=== PATIENT | male | born 1960 | race Caucasian/White ===

== ENCOUNTER 2018-10-27 00:14 | Outpatient (CLI) | payer OTHER, SELFPAY ==
[2018-10-27 13:01] LABS: #Basophils 0.1 thou/uL (0.0-0.2); #Eosinphils 0.5 thou/uL (0.0-0.7); #Lymphocytes 2.3 thou/uL (1.20-3.40); #Monocytes 0.7 thou/uL (0.11-0.59); #Neutrophils 4.3 thou/uL (1.40-6.50); %Basophils 0.7 % (0.0-1.0); %Eosinophils 6.6 % (0.0-10.0); %Lymphocytes 29.4 % (21.0-51.0); %Monocytes 8.8 % (0.0-10.0); %Neutrophils 54.5 % (42.0-75.0); Hemoglobin 15.4 g/dL (14.0-18.0); Mean Corpuscular HGB CONC 33.2 g/dL (32.0-36.0); Mean Corpuscular Hemoglobin 29.9 pg (27.0-31.0); Mean Corpuscular Volume 90.3 fL (78.0-98.0); Mean Platelet Volume 6.4 fL (7.4-10.4); Platelet Count 276 thou/uL (130-400); RBC Distribution Width 11.7 % (11.5-14.5); Red Blood Cell (RBC) Count 5.13 mill/uL (4.70-6.10); White Blood Cell (WBC) Count 7.8 thou/uL (4.8-10.8)
[2018-10-27 13:20] LABS: ALT (SGPT) 46 U/L (8-55); AST (SGOT) 28 U/L (5-34); Alkaline Phosphatase 101 U/L (40-150); Anion Gap 12 mmol/L (10-20); BUN (Urea Nitrogen) 18 mg/dL (8.4-25.7); Bilirubin, Total 0.3 mg/dL (0.2-1.2); Calc. Creatinine Clearance 0 mL/min (70-130); Calcium 9.2 mg/dL (7.8-10.44); Carbon Dioxide 29 mmol/L (22-29); Chloride 103 mmol/L (98-107); Estimated GFR-MDRD 64; Globulin 2.7 g/dL (2.4-3.5); Glucose 99 mg/dL (70-105); Potassium 4.3 mmol/L (3.5-5.1); Protein, Total 6.7 g/dL (6.0-8.3); Sodium 140 mmol/L (136-145)
--- NOTE | 2018-10-28 07:24 | EKG ---
Test Reason : Blood Pressure : / mmHG Vent. Rate : 064 BPM Atrial Rate : 064 BPM P-R Int : 154 ms QRS Dur : 090 ms QT Int : 406 ms P-R-T Axes : 066 062 070 degrees QTc Int : 418 ms Normal sinus rhythm Normal ECG No previous ECGs available Confirmed by RASHAAD MUSE ([id number]) on 10/28/2018 7:24:37 AM Referred By: SALLY Confirmed By:RASHAAD MUSE
== END 2018-10-27 00:15 | disposition home or self-care (01) ==
LOC: LABBT 00:14
PROVIDERS: ATTEND Surgery
DX: Z01.818 Encounter for other preprocedural examination (principal); K40.20 Bilateral inguinal hernia, without obstruction or gangrene, not specified as recurrent
CPT/HCPCS: 80053; 85025; 93005; 93010

== ENCOUNTER 2018-10-31 06:50 | Inpatient (IN) | payer OTHER, SELFPAY ==
[2018-10-27 12:23] VITALS: BMI 24.3
[2018-10-31] MEDS ORDERED: Fentanyl 100 MCG/2 ML VIAL ONE ×7 (08:01→20:21)
[2018-10-31] MEDS ORDERED: Bupivacaine/Epinephrine 0.25% 30 ML VIAL ONE ×2 (09:23→09:39)
[2018-10-31] MEDS ORDERED: Midazolam HCl 2 mg/2 ml Vial ONE (09:44)
[2018-10-31] MEDS ORDERED: ISOVUE-370 76%-LOCM 1 ML ONE (13:44)
[2018-10-31] MEDS ORDERED: ePHEDrine/0.9% NaCl/PF SYRINGE 50 mg/10 ml ONE (13:45)
[2018-10-31 15:36] LABS: Hemoglobin 14.3 g/dL (14.0-18.0)
[2018-10-31] MEDS ORDERED: PROPOFOL 200 MG/20 ML VIAL ONE ×2 (16:34→16:35)
[2018-10-31] MEDS ORDERED: Dexamethasone 20 MG/5 ML VIAL ONE ×2 (16:34→16:35)
[2018-10-31] MEDS ORDERED: Rocuronium Bromide 10 MG/ML (10ML VIAL) ONE ×2 (16:34→16:35)
[2018-10-31] MEDS ORDERED: Glycopyrrolate 0.2 MG/ML 5 ML SYRINGE ONE ×2 (16:34→16:35)
[2018-10-31] MEDS ORDERED: Ketorolac Tromethamine 30 MG/ML VIAL ONE (16:34)
[2018-10-31] MEDS ORDERED: Ondansetron PF 4 MG/2 ML Vial ONE ×2 (16:34→16:35)
[2018-10-31] MEDS ORDERED: Succinylcholine Chloride 20 MG/ML 10 ml SYRINGE FS ONE (16:35)
[2018-10-31] MEDS ORDERED: PHENYLEPHRINE-NS 100 MCG/ML 10 ML SYRINGE ONE (16:35)
[2018-10-31] MEDS ORDERED: Lidocaine 2% PF 5 ML VIAL ONE (16:35)
--- NOTE | 2018-10-31 16:36 | CT ---
CT Abdomen Pelvis W Con History: [Postoperative abdominal pain] Comparison: CT 10/18/2014 Findings: Lung bases have mild atelectatic changes. No pericardial effusion. There is a large hematoma which is retroperitoneal along the right pelvis without contrast extravasat ion from the right external iliac artery. There is also some low-grade fluid along the proximal small bowel mesentery and along the right subphrenic space. No hydronephrosis. There is L1 compression fracture with some peripheral sclerosis healed from 2015. There is gas along both inguinal canals with hemorrhage extending into the right scrotum. Overall the hematoma measures 13.5 x 9 x 18 cm (transverse by AP by craniocaudal). No dilated loops of large or small bowel. Pancreas unremarkable as well as the spleen and liver. Gall bladder is unremarkable. Impression: 1. Active contrast extravasation likely from the right external iliac artery with hematoma as describ ed. Endovascular consultation advised. 2. Small volume right subphrenic fluid which does not measured blood attenuation. 3. Extension of hemorrhage into the right hemiscrotum. Code CR
[2018-10-31] MEDS ORDERED: Protamine Sulfate 50 MG/5 ML VIAL ONE (16:46)
[2018-10-31] MEDS ORDERED: Heparin 5,000 UNITS/ML VIAL ONE (16:46)
[2018-10-31] MEDS ORDERED: Bupivacaine HCl 0.5%/Epinephrine 1:200,000/PF 30 ml Vial ONE (16:46)
[2018-10-31] MEDS ORDERED: Fentanyl 250 MCG/5 ML VIAL ONE (16:47)
[2018-10-31] MEDS ORDERED: Midazolam HCl 5 mg/5 ml Vial ONE (16:47)
[2018-10-31] MEDS ORDERED: Heparin 10,000 UNITS/1 ML VIAL ONE (16:52)
[2018-10-31] MEDS ORDERED: Ketamine 50 MG/ML (10ML VIAL) ONE (17:02)
[2018-10-31] MEDS ORDERED: Norepinephrine 8 MG/0.9% NS 250 ML ONE (17:02)
[2018-10-31] MEDS ORDERED: Albumin 5% 500 ML ONE (17:38)
--- NOTE | 2018-10-31 18:07 | PRG ---
DATE OF SERVICE: 10/31/2018 The patient returned from CT scan. CAT scan shows an active extravasation from the right external iliac artery with a fairly large retroperitoneal bleed. He is still hurting some. He is still awake. His blood pressure is 89/70. His heart rates in the 70s. He is mentating. We planned to take him back. I have been contacted Dr. Guerra, Cardiovascular Surgery, who will actually do the procedure and I will assist him. We are going to go ahead and once he is asleep put some lines and attempt repair. Job ID: [id number]
[2018-10-31] MEDS ORDERED: Ondansetron PF 4 MG/2 ML Vial IVP PRN (19:49)
[2018-10-31] MEDS ORDERED: Dextrose 50% Abboject 50 ML SYRINGE SLOW IVP PRN (19:49)
[2018-10-31] MEDS ORDERED: Dextrose 5% in Water 1,000 ML IV PRN (19:49)
[2018-10-31] MEDS ORDERED: hydrALAZINE 20 MG/ML VIAL SLOW IVP PRN (19:49)
[2018-10-31] MEDS ORDERED: Promethazine HCl 25 MG/ML VIAL IM PRN (19:49)
[2018-10-31] MEDS ORDERED: Morphine 4 MG/ML VIAL SLOW IVP PRN (19:49)
--- NOTE | 2018-10-31 20:18 | RAD ---
Radiograph chest one view: 10/31/2018 at 8:00 PM HISTORY: 58-year-old male status post central line placement COMPARISON: 07/17/2008 FINDINGS: There is a new right subclavian central vascular catheter which crosses the midline of the mediastinu m, with distal tip overlying the medial aspect of the contralateral left clavicle. No pneumothorax is visualized. No pulmonary edema or cardiomegaly. The medial base of the left lower lobe has a small region of increased attenuation which could be atelectasis although it would be difficult to rule out early pneumonia in this location. This was not present on the prior study. IMPRESSION: 1. Right subclavian central vascular catheter placement with distal tip that crosses the midline of t he mediastinum, overlying the expected location of the contralateral left subclavian vein. 2. No pneumothorax. 3. Nonspecific small focal region of increased density at the medial base of the left lower lobe.
[2018-10-31] MEDS ORDERED: Ondansetron HCl/PF 4 MG/2 ML Vial IVP PRN (20:40)
[2018-10-31] MEDS ORDERED: Promethazine HCl 25 MG/ML VIAL IM/IV PRN (20:40)
[2018-10-31] MEDS: Famotidine 20 MG TAB PO SCH (21:57)
[2018-10-31] MEDS: Piperacillin/Tazobactam 3.375 GM in Sodium Chloride 0.9% 100 ML IVPB SCH (22:04)
[2018-10-31] MEDS: D5 1/2 NS w/20 mEq KCL 1,000 ML IV SCH (22:05)
[2018-10-31] MEDS: Famotidine/PF 20 mg/2ml Vial SLOW IVP SCH (22:05)
--- NOTE | 2018-10-31 22:06 | HP ---
CHIEF COMPLAINT: Abdominal distention and pain. HISTORY OF PRESENT ILLNESS: The patient is a 58-year-old male, who had massive bilateral inguinal hernias repaired this morning in the recovery room and [facility] was noted to have increased abdominal pain, abdominal distention, and hypotension. We decided to admit him for further evaluation and treatment. On examination, his heart rates in the 70s, but his blood pressure is 97/60, looks pale. His abdomen is distended. The surgical incision sites are dry. There was no bleeding. ASSESSMENT: Abdominal distention and pain after repair of very large inguinal hernias. PLAN: CT scan of abdomen and pelvis, IV fluids, pain medicine. Job ID: [id number]
[2018-10-31] MEDS: HYDROcodone/Acetaminophen 10/325 mg Tablet PO PRN (22:12)
--- NOTE | 2018-11-01 01:44 | OP ---
DATE OF PROCEDURE: 10/31/2018 PREOPERATIVE DIAGNOSIS: Possible iliac artery injury with poor IV access. PROCEDURE PERFORMED: Right subclavian central line placement. INDICATIONS: The patient is a 58-year-old male with possible arterial injury and needs IV access. FINDINGS: Good backflow of venous blood, J-wire threaded easily. DESCRIPTION OF PROCEDURE: After informed consent was obtained, the patient already was in Trendelenburg position. His chest was prepped and draped in the usual fashion. An introducer needle was inserted, right subclavian good backflow of venous blood. J-wire threaded easily. The pre-flushed triple-lumen catheter inserted over the wire. The wire was removed. Each of the ports flushed, good backflow of venous blood, flushed with saline. The catheter was sutured in place with interrupted 3-0 silk suture. Sterile bandage applied. The patient tolerated the procedure well and the main procedure commenced. Chest x-ray obtained in recovery. Job ID: [id number]
--- NOTE | 2018-11-01 01:54 | OP ---
DATE OF PROCEDURE: 10/31/2018 PREOPERATIVE DIAGNOSIS: Possible external iliac artery injury with active extravasation. BALLOON MAKER SURGEON: Geoffrey Michele MD PROCEDURE PERFORMED: Groin exploration, ligation of right inferior epigastric artery and recurrent right inguinal hernia repair with mesh. INDICATIONS: The patient is a 58-year-old male, who had bilateral gigantic scrotal hernias repaired this morning. Later in recovery, he was found to be complaining of increasing abdominal pain, abdominal distention, and hypotension. We sent him for a CT scan with IV contrast showing a retroperitoneal hematoma with active extravasation that the radiologist read out as coming from the external iliac artery. Unfortunately, both of the vascular surgeons were in an emergency surgery [facility]. The third was on vacation, but we were able to get hold to Dr. Michele and he was able to come in, even though he was on vacation, but it took an extra hour and a half. The patient was stable while we wanted to put an arterial line and central line. Awaiting the cardiac surgeon from coming in, I wanted calling the radiologist on-call. He had a relook at the scan, I said is it possible that this could be just an inferior epigastric artery bleed and he said yes it could be. We elected because he was stable to not create a new incision, but go through the old incision. We prepared for the worst. DESCRIPTION OF PROCEDURE: His entire abdomen and leg were prepped and draped in the usual fashion. The fresh incision was opened. The sutures were removed. The mesh was removed. There was quite a bit of old hematoma, but no active bleeding seen. We inserted retractors and evacuated clot. We were prepared with the Cell Saver. After we evacuated all of the clot, we started seeing a little bit of fresh bright red blood coming from the inferior surface of the rectus and we ligated it now with a 2-0 Vicryl [id number]. We irrigated the old hematoma out and also we did inspect into the scrotum and washed it out. Hemostasis assured. A new piece of mesh was placed in the preperitoneal space. It was sutured to the pubic tubercle medially with a 2-0 Prolene suture, tucked under the external oblique fascia laterally. A notch was cut out for the spermatic cord. Then, the external oblique fascia was closed over the cord with a running 3-0 Vicryl. Андрей was closed with interrupted 3-0 Vicryl and skin closed with skin robert. A new bandage was placed on the left as well. The patient tolerated the procedure well, transferred to Recovery in fair condition. Job ID: [id number]
[2018-11-01] MEDS: HYDROcodone/Acetaminophen 10/325 mg Tablet PO PRN ×4 (02:57→22:51)
[2018-11-01] MEDS: Piperacillin/Tazobactam 3.375 GM in Sodium Chloride 0.9% 100 ML IVPB SCH ×4 (02:58→20:27)
[2018-11-01] MEDS: Morphine 2 MG/ML SYRINGE SLOW IVP PRN (04:27)
[2018-11-01 05:00] LABS: Anion Gap 11 mmol/L (10-20); BUN (Urea Nitrogen) 20 mg/dL (8.4-25.7); Calc. Creatinine Clearance 67 mL/min (70-130); Calcium 7.4 mg/dL (7.8-10.44); Carbon Dioxide 20 mmol/L (22-29); Chloride 108 mmol/L (98-107); Estimated GFR-MDRD 58; Glucose 166 mg/dL (70-105); Potassium 4.2 mmol/L (3.5-5.1); Sodium 135 mmol/L (136-145)
[2018-11-01 05:22] LABS: #Lymphocytes 1.2 thou/uL (1.20-3.40); #Monocytes 1.2 thou/uL (0.11-0.59); %Basophils 0.1 % (0.0-1.0); %Eosinophils 0.1 % (0.0-10.0); %Lymphocytes 7.8 % (21.0-51.0); %Monocytes 7.8 % (0.0-10.0); %Neutrophils 84.2 % (42.0-75.0); Hemoglobin 8.2 g/dL (14.0-18.0); Mean Corpuscular HGB CONC 32.5 g/dL (32.0-36.0); Mean Corpuscular Hemoglobin 29.7 pg (27.0-31.0); Mean Corpuscular Volume 91.3 fL (78.0-98.0); Mean Platelet Volume 6.7 fL (7.4-10.4); Platelet Count 220 thou/uL (130-400); RBC Distribution Width 11.5 % (11.5-14.5); Red Blood Cell (RBC) Count 2.77 mill/uL (4.70-6.10); White Blood Cell (WBC) Count 15.4 thou/uL (4.8-10.8)
[2018-11-01] MEDS: D5 1/2 NS w/20 mEq KCL 1,000 ML IV SCH ×2 (07:30→16:39)
--- NOTE | 2018-11-01 08:48 | OP ---
DATE OF PROCEDURE: 10/31/2018 PREOPERATIVE DIAGNOSES: Bilateral scrotal inguinal hernia. PROCEDURES PERFORMED: Bilateral open inguinal hernia repair with mesh. INDICATIONS: A 58-year-old male with very large bilateral scrotal inguinal hernias. They appeared to be somewhat reducible, but in preop, I could not completely reduce them, so for that reason, I did not do this laparoscopically. DESCRIPTION OF PROCEDURE: The patient was taken to the operating room and given general endotracheal anesthesia, placed in supine position. Abdomen and scrotum were prepped and draped in usual fashion. Local anesthesia was infiltrated subcutaneously and deep, started on the right side. A transverse right inguinal incision was performed. Subcu divided sharply. The fascia external oblique was incised in direction of its fibers through the external ring. The spermatic cord was massive and finally, I was able to get all the way around it and in so doing, was able to reduce this hernia. The hernia sac was extremely thick. This was dissected from surrounding cord structures down to the internal ring. It was very large hernia sac. The hernia sac was opened and inspected. There was no bowel within it. It was closed with a pursestring of 2-0 silk suture. Redundant sac excised. The proximal sac was reduced. Reduction maintained utilizing a PHS hernia system. Posterior layer placed in the preperitoneal space, anterior laid out, sutured the pubic tubercle with a 2-0 Prolene suture. Then, tucked under the external oblique fascia laterally. The external oblique fascia then closed over the cord with a running 3-0 Vicryl. Hemostasis assured. Андрей's closed with interrupted 3-0 Vicryl and the skin closed with a running subcuticular 4-0 Rapide. Then, moved to the left side. Again, local anesthesia infiltrated subcutaneously and deep. Transverse inguinal incision was performed. Subcu divided sharply. The fascia external oblique was incised in direction of its fibers through the external ring. Spermatic cord isolated, but it was very large. It was able to be isolated. It was , redundant sac excised. Proximal sac was reduced. Reduction maintained with a PHS hernia system. Posterior layer placed in the preperitoneal space, sutured to the pubic tubercle medially, tucked under the external oblique fascia laterally. The external oblique fascia closed with a running 3-0 Vicryl over the cord after hemostasis assured. Subcu reapproximated with interrupted 3-0 Vicryl. Skin closed with a running subcuticular 4-0 Rapide. Steri-Strips applied. Sterile bandage was applied. The patient tolerated the procedure well, transferred to Recovery in good condition. Sponge and needle count verified correct x2. Job ID: [id number]
[2018-11-01] MEDS ORDERED: Enoxaparin Sodium 40 MG/0.4 ML SYRINGE SC SCH (09:00)
[2018-11-01] MEDS: Famotidine/PF 20 mg/2ml Vial SLOW IVP SCH ×2 (09:22→20:27)
[2018-11-01] MEDS: Famotidine 20 MG TAB PO SCH ×2 (09:23→20:26)
[2018-11-01 11:20] LABS: Hemoglobin 8.8 g/dL (14.0-18.0)
--- NOTE | 2018-11-01 12:57 | PRG ---
DATE OF SERVICE: 11/01/2018 SUBJECTIVE: The patient reports moderate pain, had not gotten any worse. No nausea or vomiting. He is hungry. The Sears is bothering him. OBJECTIVE: VITAL SIGNS: On exam, temperature 98.3, pulse 87, blood pressure 118/68. GENERAL: He is awake, alert, in no apparent distress. The dressings are dry. ABDOMEN: Soft. : He is putting out good urine. LABORATORY DATA: His hemoglobin dropped from 14 to 8.2, but we repeated it and it is 8.8 now 6 hours later. ASSESSMENT: Inferior epigastric artery bleed post hernia surgery, doing well. PLAN: Discontinue Sears. Advance diet. Job ID: [id number]
[2018-11-01 14:37] LABS: Actual Bicarbonate (HCO3a) 18.5 mEq/L (22-28); Analyzer IN Cardio OR; Base Excess (BEa) -5.8 mEq/L (-2.0 to +3.0); CO2 Tension 32.3 mmHg (35.0-45.0); Calcium, Ionized 1.01 mmol/L (1.12-1.30); Carboxyhemoglobin (COHb) 0.3 gm% (0.0-3.0); Hemoglobin (Hb) 10.9 g/dL (14.0-18.0); O2 Tension (PaO2) 473.5 mmHg (80.0-100.0); Potassium - ABG Lab 5.04 mmol/L (3.70-5.30); pH, Arterial 7.38 (7.35-7.45)
[2018-11-01 14:38] LABS: Puncture Site A
[2018-11-01 16:55] LABS: Hemoglobin 8.8 g/dL (14.0-18.0)
--- NOTE | 2018-11-01 20:50 | CON ---
DATE OF CONSULTATION: 10/31/2018 CHIEF COMPLAINT: Abdominal distention with retroperitoneal extravasation of contrast on CT scanning. HISTORY OF PRESENT ILLNESS: The patient is a 58-year-old man who earlier today underwent open mesh repair of bilateral inguinal hernias that were quite large. He began having abdominal pain and distention, and blood pressure is running a little bit on the low side. CT scanning showed a large retroperitoneal hematoma with obvious extravasation of contrast material into the hematoma, although the source of extravasation was not clear. PAST MEDICAL HISTORY: The patient apparently has minimal past medical history. MEDICATIONS: His only medication at home is p.r.n. naproxen. ALLERGIES: HE HAS NO KNOWN MEDICAL ALLERGIES. PHYSICAL EXAMINATION: The patient is under general endotracheal anesthesia and was prepped and draped. His heart rates have been in the 80s, systolic blood pressures in the 80s to 90s under general anesthesia and with very low-dose Levophed it would come up into the 100 systolic range. He has modest fullness in the right lower quadrant that is palpable and he has a palpable right femoral pulse on that side. There is no obvious bruising associated with either of his hernia incisions where that I can appreciate on the exposed abdominal wall. LABORATORY DATA: His preop hemoglobin was 15.4 and this afternoon postop was 14.3, with chemistries being essentially normal. His CT scan showed a large retroperitoneal hematoma on the right side with an area of extravasated contrast. There is a wispy area of contrast that appears to represent a vessel coming off the distal external iliac medially that can be seen, but the external iliac itself appears to be intact and the bulk of the extravasated contrast that seen on CAT scan is centrally located in the hematoma well away from the iliac. IMPRESSION AND RECOMMENDATIONS: In discussion with Dr. Hoffman, he thinks that this most likely represents an inferior epigastric injury while placing mesh for the hernia repair and I will assist him with exploration. I think the CT appearance and clinical course are such that we are unlikely to get into major vascular injury that would warrant an alternate approach to first achieve proximal and distal control. Job ID: [id number]
[2018-11-01] MEDS ORDERED: Polyethylene Glycol 3350 17 GM Packet PO SCH (22:45)
[2018-11-01 23:15] LABS: Alcohol Less than 10 mg/dL (Less than 10)
[2018-11-01 23:42] LABS: #Lymphocytes 1.8 thou/uL (1.20-3.40); #Monocytes 0.9 thou/uL (0.11-0.59); #Neutrophils 6.2 thou/uL (1.40-6.50); %Basophils 0.3 % (0.0-1.0); %Eosinophils 0.5 % (0.0-10.0); %Lymphocytes 19.8 % (21.0-51.0); %Neutrophils 69.4 % (42.0-75.0); Hemoglobin 7.5 g/dL (14.0-18.0); Mean Corpuscular HGB CONC 33.6 g/dL (32.0-36.0); Mean Corpuscular Hemoglobin 30.3 pg (27.0-31.0); Mean Corpuscular Volume 90.3 fL (78.0-98.0); Mean Platelet Volume 7.1 fL (7.4-10.4); Platelet Count 197 thou/uL (130-400); RBC Distribution Width 11.7 % (11.5-14.5); Red Blood Cell (RBC) Count 2.46 mill/uL (4.70-6.10)
--- NOTE | 2018-11-02 00:26 | CON ---
DATE OF CONSULTATION: REASON FOR CONSULTATION: Medical management. HISTORY OF PRESENT ILLNESS: Mr. Baez is a 58-year-old man with a history of large bilateral inguinal hernias, who underwent repair yesterday, 10/31/2018. His postoperative course was complicated by increased abdominal pain and distention as well as hypotension. He underwent a CT of the abdomen and pelvis that revealed active contrast extravasation from the right external iliac artery with hematoma present, measuring 13.5 x 9 x 18 cm. At that time, there was no evidence of dilated loops of large or small bowel. He was noted to have small volume right subphrenic fluid and extension of hemorrhage into the right hemiscrotum. The patient was taken back to surgery and underwent evacuation of the clot. Bleeding was seen coming from the inferior surface of the rectus, which was ligated. Hemostasis was obtained. This morning, the patient's hemoglobin was 8.2 compared to 14.3 yesterday. Hemoglobin was trended and bumped up to 8.8, and remained stable when repeated again earlier this afternoon. At this present time, it appears the patient is being scheduled for discharge tomorrow. He complains of an episode of chest tightness, which he experienced some time earlier this evening when going outside to smoke a cigarette. He states the pain resolved on its own once he was in his room. Denies any further episodes of chest pain. No associated diaphoresis, nausea, or vomiting. Denies having any shortness of breath, cough, or hemoptysis. He does report having some mild distention of his abdomen and states he has not moved his bowels in 4 to 5 days. He has been passing flatus and denies having any nausea or vomiting. He is tolerating oral intake. Denies having any urinary complaints. All other review of systems are negative. PAST MEDICAL HISTORY: 1. Thoracic spine fracture. 2. Chronic bronchitis. 3. Tobacco use. PAST SURGICAL HISTORY: 1. Left leg surgery. 2. Bilateral hernia repair. 3. Right subclavian central line placement. 4. Groin exploration, ligation of right inferior epigastric artery and recurrent right inguinal hernia repair with mesh. SOCIAL HISTORY: The patient reports being a former drug user. He occasionally smokes marijuana. He denies any alcohol for several months. Reports smoking cigarettes for many years. ALLERGIES: NO KNOWN DRUG ALLERGIES. CURRENT MEDICATIONS: Naproxen. PHYSICAL EXAMINATION: GENERAL: The patient appears unkempt, in no acute distress. VITAL SIGNS: Temperature 98.3, pulse 86, respirations 16, O2 saturation 96% on 2 L by nasal cannula, blood pressure 112/69. HEENT: Normocephalic and atraumatic. Pupils are equal, round, and reactive to light. Sclerae without icterus. Oropharynx is clear. NECK: Supple. LUNGS: Notable for inspiratory wheezing. Decreased breath sounds at the bilateral bases. No chest wall tenderness. CARDIAC: Regular rate and rhythm. ABDOMEN: Slightly distended. Mild discomfort with diffuse palpation. No guarding or rigidity. Hypoactive bowel sounds present. EXTREMITIES: Without edema or calf tenderness. Mechanical SCD is in place. NEUROLOGIC: Alert and oriented x3. SKIN: Without rash or jaundice. LABORATORY DATA: White blood count 15.4, hemoglobin 8.2, hematocrit 25.3, platelets 220. IMAGING DATA: Chest x-ray done 10/31/2018. Right subclavian central vascular catheter placement. No pneumothorax. Nonspecific focal region of increased density at the medial base of the left lower lobe. IMPRESSION AND PLAN: Mr. Baez is a 58-year-old man who is status post bilateral inguinal hernia repair with postoperative course complicated by development of a hematoma with extension into the right hemiscrotum, requiring exploration with ligation of the right inferior epigastric artery, and recurrent right inguinal hernia repair with mesh following evacuation of clots. Postoperatively, the patient states he is feeling significantly better in regard to the pain he experienced when he initially developed the hematoma. He does report having an episode of chest tightness when going downstairs and outside to smoke a cigarette. At this present moment, he is free of any chest pain, but does report mild discomfort in the abdomen with no bowel movements for the last 4 to 5 days. He is afraid to strain given the recent surgery. 1. Chest tightness. The patient did have wheezing on exam. Elevated white count may be reactive due to recent surgery. We will request procalcitonin stat. We will request a chest x-ray. If procalcitonin is positive, we will start him on Plavix. The patient remains afebrile at present. He will begin scheduled DuoNebs to help with wheezing. We will add serial troponins. EKG has been done and shows no interval changes. 2. Abdominal distention. Continue to monitor for worsening pain or distention. Continue to monitor hemoglobin, which is currently stable. 3. Constipation. We will start senna twice daily and MiraLAX daily. The patient is tolerating oral intake at present. 4. Gastrointestinal prophylaxis. 5. Deep venous thrombosis prophylaxis. Mechanical SCD is in place. 6. Full code status. The patient's case was discussed with Dr. Cueva, who agrees with plan of care as described above. Job ID: [id number]
--- NOTE | 2018-11-02 00:32 | RAD ---
Radiograph chest one view: 11/01/2018 at 11:05 PM HISTORY: 58-year-old male with dyspnea and chest tightness COMPARISON: 10/31/2018 at 8:00 PM FINDINGS: Again noted is the right subclavian central line which crosses to the contralateral left upper chest. No pneumothorax. New finding of subsegmental atelectasis at the right medial base with associated elevation of the right hemidiaphragm. Nonspecific area of increased density at the medial base of the left lower lobe remains. No cardiomegaly or pneumothorax. No pulmonary edema. IMPRESSION: 1. New finding of atelectasis at the right lung base. 2. Right subclavian central vascular catheter crosses to the contralateral left side. 3. Nonspecific small area of increased attenuation at the left medial lower lobe.
[2018-11-02 02:30] LABS: Troponin I Less than 0.010 ng/mL (< 0.028)
[2018-11-02] MEDS: D5 1/2 NS w/20 mEq KCL 1,000 ML IV SCH ×4 (02:31→15:21)
[2018-11-02] MEDS: Piperacillin/Tazobactam 3.375 GM in Sodium Chloride 0.9% 100 ML IVPB SCH ×4 (02:59→20:26)
[2018-11-02] MEDS: HYDROcodone/Acetaminophen 10/325 mg Tablet PO PRN ×4 (08:43→22:25)
[2018-11-02] MEDS: Enoxaparin Sodium 40 MG/0.4 ML SYRINGE SC SCH (08:43)
[2018-11-02] MEDS: Famotidine 20 MG TAB PO SCH ×2 (08:43→20:26)
[2018-11-02 08:48] LABS: #Basophils 0.1 thou/uL (0.0-0.2); #Eosinphils 0.1 thou/uL (0.0-0.7); #Lymphocytes 1.8 thou/uL (1.20-3.40); #Monocytes 0.9 thou/uL (0.11-0.59); #Neutrophils 6.1 thou/uL (1.40-6.50); %Basophils 0.6 % (0.0-1.0); %Lymphocytes 20.2 % (21.0-51.0); %Monocytes 10.4 % (0.0-10.0); %Neutrophils 67.9 % (42.0-75.0); Hemoglobin 7.3 g/dL (14.0-18.0); Mean Corpuscular HGB CONC 32.3 g/dL (32.0-36.0); Mean Corpuscular Hemoglobin 29.7 pg (27.0-31.0); Mean Corpuscular Volume 92.1 fL (78.0-98.0); Mean Platelet Volume 6.8 fL (7.4-10.4); Platelet Count 194 thou/uL (130-400); RBC Distribution Width 11.9 % (11.5-14.5); Red Blood Cell (RBC) Count 2.45 mill/uL (4.70-6.10)
[2018-11-02] MEDS: Famotidine/PF 20 mg/2ml Vial SLOW IVP SCH ×2 (10:35→20:26)
[2018-11-02] MEDS: Senokot 8.6 MG TAB PO PRN (10:52)
[2018-11-02] MEDS: Nicotine 14 MG PATCH TD PRN (12:31)
[2018-11-02] MEDS ORDERED: Bisacodyl 10 MG SUPP PR SCH (13:15)
--- NOTE | 2018-11-02 13:24 | PRG ---
DATE OF SERVICE: 11/02/2018 SUBJECTIVE: The patient reports feeling bloated, some nausea, no flatus. OBJECTIVE: VITAL SIGNS: Temperature 98.3 pulse 80, and blood pressure 96/65. LUNGS: Clear. ABDOMEN: Somewhat distended. Rare bowel sounds. Incisions are fine. LABORATORY DATA: His white count is 9, hemoglobin and hematocrit are 7.3 and 22.6. His platelet count 194. ASSESSMENT: Ileus due to retroperitoneal hemorrhage. PLAN: Try Dulcolax suppository. Ambulate. Job ID: [id number]
--- NOTE | 2018-11-02 22:51 | PDOC.PN ---
- Subjective Encounter Start Date: 11/02/18 Encounter Start Time: 14:15 Patient seen and examined for med mngt. SOB improving. No CP. No new complaints. No overnight events - Objective MAR Reviewed: Yes Vital Signs & Weight: Vital Signs (12 hours) Temp Pulse Resp BP Pulse Ox 11/02/18 22:03 12 11/02/18 20:25 98.9 F 98 14 102/62 92 L 11/02/18 18:30 88 12 11/02/18 15:56 97.8 F 108 H 18 110/64 94 L 11/02/18 14:22 78 20 93 L 11/02/18 11:58 98.3 F 80 22 H 96/65 91 L Weight Weight 165 lb I&O: 11/01/18 11/02/18 11/03/18 06:59 06:59 06:59 Intake Total 1500 2370 2150 Output Total 900 1550 1325 Balance 600 820 825 Result Diagrams: 11/02/18 08:25 11/01/18 Unknown Phys Exam - Physical Examination Constitutional: NAD Respiratory: no wheezing, no rhonchi Cardiovascular: RRR, no rub Gastrointestinal: soft gent tenderness Neurological: moves all 4 limbs Dx/Plan - Plan DVT proph w/SCDs IMPRESSION: Atypical CP/SOB due to Atelectasis Tobacco dependence Hyponatremia Acute blood loss Anemia due to retroperitoneal hemorrhage PLAN: Ambulate IV iron infusion Nicotin patch PRN Cont IS AM labs Cont IVF Add EZPAP Will follow Review of Systems - Review of Systems Respiratory: negative: Cough, Dry, Shortness of Breath, Hemoptysis, SOB with Excertion, Pleuritic Pain, Sputum, Wheezing Cardiovascular: negative: chest pain, palpitations, orthopnea, paroxysmal nocturnal dyspnea, edema, light headedness, other - Medications/Allergies Allergies/Adverse Reactions: Allergies Allergy/AdvReac Type Severity Reaction Status Date / Time No Known Allergies Allergy Verified 10/31/18 23:52 Medications: Current Medications Hydrocodone Bitart/Acetaminophen (Spearman 10/325) 1 tab PO Q4H PRN PRN Reason: Mild-Moderate Pain (1-5) Last Admin: 11/01/18 02:57 Dose: 1 tab Hydrocodone Bitart/Acetaminophen (Spearman 10/325) 2 tab PO Q4H PRN PRN Reason: Severe Pain (7-10) Last Admin: 11/02/18 22:25 Dose: 2 tab Albuterol/Ipratropium (Duoneb) 3 ml NEB [id number] [facility] Last Admin: 11/02/18 22:03 Dose: 3 ml Dextrose/Water (Dextrose 50%) 25 gm SLOW IVP PRN PRN PRN Reason: Hypoglycemia Enoxaparin Sodium (Lovenox) 40 mg SC 0900 [facility] Last Admin: 11/02/18 08:43 Dose: 40 mg Famotidine (Pepcid) 20 mg PO Q12HR [facility] Last Admin: 11/02/18 20:26 Dose: 20 mg Famotidine (Pepcid) 20 mg SLOW IVP Q12HR [facility] Last Admin: 11/02/18 20:26 Dose: Not Given Glucagon (Glucagon) 1 mg IM PRN PRN PRN Reason: Hypoglycemia Hydralazine HCl (Apresoline) 10 mg SLOW IVP Q4H PRN PRN Reason: SBP > 170 or DBP > 100 Potassium Chloride/Dextrose/Sod Cl (D5 1/2 Ns W/20 Meq Kcl) 1,000 mls @ 110 mls /hr IV .Q9H6M [facility] Last Admin: 11/02/18 15:21 Dose: 1,000 mls Dextrose/Water (D5w) 1,000 mls @ 0 mls/hr IV .Q0M PRN PRN Reason: Hypoglycemia Piperacillin Sod/Tazobactam (Sod 3.375 gm/ Sodium Chloride) 100 mls @ 200 mls/ hr IVPB 0300,0900,1500,2100 [facility] Last Admin: 11/02/18 20:26 Dose: 100 mls Morphine Sulfate (Morphine) 2 mg SLOW IVP Q2H PRN PRN Reason: Moderate Pain (4-6) Last Admin: 11/01/18 04:27 Dose: 2 mg Morphine Sulfate (Morphine) 4 mg SLOW IVP Q2H PRN PRN Reason: Severe Pain (7-10) Last Admin: 11/01/18 09:22 Dose: 4 mg Nicotine (Nicoderm Patch) 14 mg TD Q24H PRN PRN Reason: Smoking craving Last Admin: 11/02/18 12:31 Dose: 14 mg Ondansetron HCl (Zofran) 4 mg IVP Q6H PRN PRN Reason: Nausea/Vomiting Promethazine HCl (Phenergan) 12.5 mg IM Q4H PRN PRN Reason: Nausea/Vomiting Senna (Senokot) 2 tab PO HSPRN PRN PRN Reason: Constipation Last Admin: 11/02/18 10:52 Dose: 2 tab Sodium Chloride (Flush - Normal Saline) 10 ml IVF PRN PRN PRN Reason: Saline Flush Last Admin: 11/02/18 08:46 Dose: 10 ml
[2018-11-03] MEDS: D5 1/2 NS w/20 mEq KCL 1,000 ML IV SCH ×3 (02:18→14:25)
[2018-11-03] MEDS: Piperacillin/Tazobactam 3.375 GM in Sodium Chloride 0.9% 100 ML IVPB SCH ×4 (02:18→21:14)
[2018-11-03] MEDS: HYDROcodone/Acetaminophen 10/325 mg Tablet PO PRN ×3 (05:49→16:49)
[2018-11-03 06:41] LABS: #Basophils 0.1 thou/uL (0.0-0.2); #Eosinphils 0.3 thou/uL (0.0-0.7); #Lymphocytes 1.6 thou/uL (1.20-3.40); #Monocytes 0.8 thou/uL (0.11-0.59); #Neutrophils 6.2 thou/uL (1.40-6.50); %Basophils 0.6 % (0.0-1.0); %Eosinophils 3.2 % (0.0-10.0); %Lymphocytes 18.1 % (21.0-51.0); %Neutrophils 69.1 % (42.0-75.0); Hemoglobin 7.8 g/dL (14.0-18.0); Mean Corpuscular HGB CONC 32.5 g/dL (32.0-36.0); Mean Corpuscular Hemoglobin 29.4 pg (27.0-31.0); Mean Corpuscular Volume 90.6 fL (78.0-98.0); Mean Platelet Volume 6.9 fL (7.4-10.4); Platelet Count 218 thou/uL (130-400); RBC Distribution Width 11.9 % (11.5-14.5); Red Blood Cell (RBC) Count 2.65 mill/uL (4.70-6.10); White Blood Cell (WBC) Count 8.9 thou/uL (4.8-10.8)
[2018-11-03 07:08] LABS: Albumin 3.4 g/dL (3.5-5.0); Anion Gap 9 mmol/L (10-20); BUN (Urea Nitrogen) 12 mg/dL (8.4-25.7); BUN/Creatinine Ratio 11.76; Calc. Creatinine Clearance 85 mL/min (70-130); Calcium 8.5 mg/dL (7.8-10.44); Carbon Dioxide 27 mmol/L (22-29); Chloride 105 mmol/L (98-107); Estimated GFR-MDRD 75; Glucose 104 mg/dL (70-105); Iron Binding Capacity, Total 303 mcg/dL (261-462); Magnesium 2.1 mg/dL (1.6-2.6); Phosphorus 2.3 mg/dL (2.3-4.7); Potassium 4.2 mmol/L (3.5-5.1); Sodium 137 mmol/L (136-145)
[2018-11-03 08:24] LABS: Troponin I 0.014 ng/mL (< 0.028)
[2018-11-03] MEDS: Iron, Sodium Ferric Gluconate 250 MG in Sodium Chloride 0.9% 250 ML 250 ML IVPB SCH (08:33)
[2018-11-03] MEDS: Famotidine/PF 20 mg/2ml Vial SLOW IVP SCH ×2 (08:39→21:14)
[2018-11-03] MEDS: Saccharomyces boulardii 250 MG CAP PO SCH (08:39)
[2018-11-03] MEDS: Multivit, Therapeutic 1 TAB PO SCH (08:39)
[2018-11-03] MEDS: Enoxaparin Sodium 40 MG/0.4 ML SYRINGE SC SCH (08:39)
[2018-11-03] MEDS: Famotidine 20 MG TAB PO SCH ×2 (08:39→21:15)
[2018-11-03] MEDS: Senokot 8.6 MG TAB PO PRN (08:56)
[2018-11-03] MEDS ORDERED: Iron Sucrose Complex 200 MG in Sodium Chloride 0.9% 250 ML 250 ML IVPB SCH (09:00)
[2018-11-03] MEDS ORDERED: Diltiazem 125 MG in Sodium Chloride 0.9% 100 ML IVPB SCH (10:30)
[2018-11-03] MEDS ORDERED: Nitroglycerin 0.4 MG TAB (25 Tab Bottle) PO PRN (11:25)
--- NOTE | 2018-11-03 13:29 | PDOC.PN ---
- Subjective Encounter Start Date: 11/03/18 Encounter Start Time: 12:45 Patient seen and examined for med mngt. Developed Afib with RVR - on Cardizem drip. Moved to Tele. Epigastric discomfort. No N/V/diaphoresis. No BM. No overnight events - Objective MAR Reviewed: Yes Vital Signs & Weight: Vital Signs (12 hours) Temp Pulse Resp BP Pulse Ox 11/03/18 12:00 92 L 11/03/18 11:10 96 F L 89 22 H 127/68 92 L 11/03/18 11:03 97 11/03/18 11:02 71 20 97 11/03/18 08:30 99 11/03/18 08:12 98.9 F 133 H 20 120/81 99 11/03/18 06:14 135 H 16 96 11/03/18 03:57 98.1 F 79 14 99/67 97 11/03/18 02:28 90 12 Weight Weight 165 lb I&O: 11/02/18 11/03/18 11/04/18 06:59 06:59 06:59 Intake Total 2370 2150 Output Total 1550 1825 775 Balance 820 325 -775 Result Diagrams: 11/03/18 05:43 11/03/18 05:43 EKG Reviewed by me: Yes (Afib with RVR ) Phys Exam - Physical Examination Constitutional: NAD Respiratory: no wheezing, no rhonchi Cardiovascular: no rub, irregular Gastrointestinal: soft, positive bowel sounds gen tenderness Musculoskeletal: no edema Neurological: moves all 4 limbs Dx/Plan - Plan DVT proph w/lovenox, DVT proph w/SCDs IMPRESSION: Afib with RVR Atypical CP/SOB due to Atelectasis Tobacco dependence Hyponatremia Acute blood loss Anemia due to retroperitoneal hemorrhage PLAN: Cont Cardizem drip IV iron infusion Cont IS/EZPAP Cont IVF/Atbx per primary team AM labs Check TSH CXR - PA/Lat in AM Not a candidate for anticoag due to Anemia Review of Systems - Review of Systems Respiratory: negative: Cough, Dry, Shortness of Breath, Hemoptysis, SOB with Excertion, Pleuritic Pain, Sputum, Wheezing Cardiovascular: negative: chest pain, palpitations, orthopnea, paroxysmal nocturnal dyspnea, edema, light headedness, other Gastrointestinal: Abdominal Pain, Constipation. negative: Nausea, Vomiting, Diarrhea, Melena, Hematochezia, Other - Medications/Allergies Allergies/Adverse Reactions: Allergies Allergy/AdvReac Type Severity Reaction Status Date / Time No Known Allergies Allergy Verified 10/31/18 23:52 Medications: Current Medications Hydrocodone Bitart/Acetaminophen ([place] 10/325) 1 tab PO Q4H PRN PRN Reason: Mild-Moderate Pain (1-5) Last Admin: 11/01/18 02:57 Dose: 1 tab Hydrocodone Bitart/Acetaminophen ([place] 10/325) 2 tab PO Q4H PRN PRN Reason: Severe Pain (7-10) Last Admin: 11/03/18 11:16 Dose: 2 tab Albuterol/Ipratropium (Duoneb) 3 ml NEB [id number] [facility] Last Admin: 11/03/18 11:02 Dose: 3 ml Albuterol/Ipratropium (Duoneb) 3 ml EZPAP [id number] [facility] Last Admin: 11/03/18 11:04 Dose: Not Given Dextrose/Water (Dextrose 50%) 25 gm SLOW IVP PRN PRN PRN Reason: Hypoglycemia Enoxaparin Sodium (Lovenox) 40 mg SC 0900 [facility] Last Admin: 11/03/18 08:39 Dose: 40 mg Famotidine (Pepcid) 20 mg PO Q12HR [facility] Last Admin: 11/03/18 08:39 Dose: 20 mg Famotidine (Pepcid) 20 mg SLOW IVP Q12HR [facility] Last Admin: 11/03/18 08:39 Dose: Not Given Glucagon (Glucagon) 1 mg IM PRN PRN PRN Reason: Hypoglycemia Hydralazine HCl (Apresoline) 10 mg SLOW IVP Q4H PRN PRN Reason: SBP > 170 or DBP > 100 Potassium Chloride/Dextrose/Sod Cl (D5 1/2 Ns W/20 Meq Kcl) 1,000 mls @ 110 mls /hr IV .Q9H6M [facility] Last Admin: 11/03/18 12:00 Dose: Not Given Dextrose/Water (D5w) 1,000 mls @ 0 mls/hr IV .Q0M PRN PRN Reason: Hypoglycemia Piperacillin Sod/Tazobactam (Sod 3.375 gm/ Sodium Chloride) 100 mls @ 200 mls/ hr IVPB 0300,0900,1500,2100 [facility] Last Admin: 11/03/18 08:39 Dose: 100 mls Ferric Sodium Gluconate Complex 250 mg/ Sodium Chloride 270 mls @ 129.808 mls/ hr IVPB DAILY [facility] Stop: 11/04/18 11:05 Last Admin: 11/03/18 08:33 Dose: 270 mls Diltiazem HCl 125 mg/ Sodium (Chloride) 125 mls @ 5 mls/hr IVPB INF [facility]; Protocol Last Admin: 11/03/18 11:06 Dose: 125 mls Morphine Sulfate (Morphine) 2 mg SLOW IVP Q2H PRN PRN Reason: Moderate Pain (4-6) Last Admin: 11/01/18 04:27 Dose: 2 mg Morphine Sulfate (Morphine) 4 mg SLOW IVP Q2H PRN PRN Reason: Severe Pain (7-10) Last Admin: 11/01/18 09:22 Dose: 4 mg Multivitamins (Theragran) 1 tab PO DAILY [facility] Last Admin: 11/03/18 08:39 Dose: 1 tab Nicotine (Nicoderm Patch) 14 mg TD Q24H PRN PRN Reason: Smoking craving Last Admin: 11/02/18 12:31 Dose: 14 mg Nitroglycerin (Nitrostat) 0.4 mg PO Q5MIN PRN PRN Reason: Chest Pain Ondansetron HCl (Zofran) 4 mg IVP Q6H PRN PRN Reason: Nausea/Vomiting Last Admin: 11/03/18 11:17 Dose: 4 mg Promethazine HCl (Phenergan) 12.5 mg IM Q4H PRN PRN Reason: Nausea/Vomiting Saccharomyces Boulardii (Florastor) 250 mg PO DAILY [facility] Last Admin: 11/03/18 08:39 Dose: 250 mg Senna (Senokot) 2 tab PO HSPRN PRN PRN Reason: Constipation Last Admin: 11/03/18 08:56 Dose: 2 tab Sodium Chloride (Flush - Normal Saline) 10 ml IVF PRN PRN PRN Reason: Saline Flush Last Admin: 11/03/18 08:40 Dose: 10 ml Sodium Chloride (Flush - Normal Saline) 10 ml IVF PRN PRN PRN Reason: Saline Flush
--- NOTE | 2018-11-03 13:53 | PRG ---
DATE OF SERVICE: 11/03/2018 SUBJECTIVE: The patient developed chest pain and atrial fibrillation this morning, was transferred to the telemetry unit. His groin pain is getting better. He has passed a little gas and still has some nausea. OBJECTIVE: VITAL SIGNS: His temperature is 96, his pulse now is 89, and blood pressure 127/68. GENERAL: He is awake and alert. HEART: Regular rate and rhythm. ABDOMEN: Somewhat distended. The incisions look fine. LABORATORY DATA: His white count is 8.9, H and H are 7.8 and 24, and platelet count 218. Electrolytes are fine. ASSESSMENT: New onset atrial fibrillation with chest pain. PLAN: Per Cardiology. Job ID: [id number]
--- NOTE | 2018-11-03 15:07 | CON ---
DATE OF CONSULTATION: 11/03/2018 REASON FOR CONSULTATION: Atrial fibrillation with RVR. HISTORY OF PRESENT ILLNESS: Mr. Baez is a pleasant 58-year-old white gentleman, who comes to the hospital for a planned hernia repair. He underwent this and had complications with bleeding, eventually had to have an artery ligated. He became anemic because of this. He was actually recuperating well and vital signs showed he was tachycardic. EKG showed he was in atrial fibrillation and RVR, heart rate in the 140s-150s, so he was transferred to telemetry and Cardiology is being consulted. We started him on a diltiazem drip to slow him down and he actually converted back into sinus a few hours later. Currently, he denies any chest pain, tightness, pressure, however, he admits to having chest tightness when he had the atrial fibrillation with RVR. PAST MEDICAL HISTORY: Tobacco use, otherwise none. PAST SURGICAL HISTORY: 1. Left leg surgery. 2. Bilateral hernia repair. 3. Right subclavian central line placement. 4. Groin exploration and ligation of the right inferior epigastric artery with recurred right inguinal hernia repair with mesh. OUTPATIENT MEDICATIONS: Naproxen p.r.n. ALLERGIES: NO KNOWN DRUG ALLERGIES. SOCIAL HISTORY: Former drug user. Occasional marijuana use now. No alcohol for several months. Smokes half pack of cigarettes daily. FAMILY HISTORY: Noncontributory. REVIEW OF SYSTEMS: A 12-point review of systems was done and was found to be negative unless stated in history of present illness. PHYSICAL EXAMINATION: VITAL SIGNS: Temperature 98.9, pulse 140, now down to 72, respiratory rate 20, saturating 92% on 3 L nasal cannula. GENERAL: Awake, alert and oriented x3, in no distress. HEENT: Normocephalic and atraumatic. NECK: Supple. LUNGS: Clear. CARDIOVASCULAR: S1 and S2. No S3 or S4. No murmurs. ABDOMEN: Soft. Positive bowel sounds. EXTREMITIES: No edema. SKIN: Warm and dry. LABORATORY WORK: Reviewed. CBC with a hemoglobin down to 7.8, white count was 15 on the 30th, now down to 8.9, platelet count was normal. Chemistry is unremarkable. Sodium was 135 on admission, 137 today with a potassium of 4.2, otherwise unremarkable. Troponin is negative x2. Albumin of 3.4. Prolactin was negative on admission. Toxicology, alcohol was undetectable. EKG was reviewed. ASSESSMENT: 1. New onset atrial fibrillation. 2. Chest pain. PLAN: 1. Continue diltiazem for now. We will switch him to a p.o. low-dose diltiazem to see if his blood pressure will allow this. Currently, he has been tolerating just fine. 2. More than likely, his atrial fibrillation is because of the amount of stress his body is undergoing. 3. His chest pain is concerning for him having coronary artery disease in the setting of rapid atrial fibrillation just pending his stress test. He would require further risk stratification, but not at this time given his anemia and his recent bleeding. It would be an adequate time to do any sort of catheterization that would require anticoagulation if stents were to be placed. 4. If his troponin starts to become positive, then we would readdress this at that time, but currently plan is to be as conservative as possible. 5. No anticoagulation for him as his [id number] score is zero. Aspirin alone once this is safe from the surgical perspective. 6. We will follow. Job ID: [id number]
[2018-11-03] MEDS: Morphine 2 MG/ML SYRINGE SLOW IVP PRN (15:14)
[2018-11-03] MEDS ORDERED: Acetaminophen 650 MG Suppository PR PRN (21:31)
[2018-11-03] MEDS ORDERED: Bisacodyl 10 MG SUPP PR PRN (21:32)
[2018-11-03] MEDS: Acetaminophen 325 MG TAB PO PRN (21:51)
[2018-11-04] MEDS: D5 1/2 NS w/20 mEq KCL 1,000 ML IV SCH ×2 (00:56→16:26)
[2018-11-04] MEDS: Piperacillin/Tazobactam 3.375 GM in Sodium Chloride 0.9% 100 ML IVPB SCH ×4 (03:25→19:52)
[2018-11-04 05:28] LABS: #Eosinphils 0.7 thou/uL (0.0-0.7); #Lymphocytes 1.5 thou/uL (1.20-3.40); #Monocytes 0.9 thou/uL (0.11-0.59); #Neutrophils 6.8 thou/uL (1.40-6.50); %Basophils 0.2 % (0.0-1.0); %Eosinophils 7.5 % (0.0-10.0); %Lymphocytes 14.9 % (21.0-51.0); %Monocytes 9.3 % (0.0-10.0); %Neutrophils 68.2 % (42.0-75.0); Hemoglobin 8.6 g/dL (14.0-18.0); Mean Corpuscular HGB CONC 32.1 g/dL (32.0-36.0); Mean Corpuscular Hemoglobin 29.4 pg (27.0-31.0); Mean Corpuscular Volume 91.7 fL (78.0-98.0); Mean Platelet Volume 6.7 fL (7.4-10.4); Platelet Count 241 thou/uL (130-400); Red Blood Cell (RBC) Count 2.92 mill/uL (4.70-6.10)
[2018-11-04 05:45] LABS: ALT (SGPT) 28 U/L (8-55); AST (SGOT) 24 U/L (5-34); Albumin 3.3 g/dL (3.5-5.0); Alkaline Phosphatase 60 U/L (40-150); Anion Gap 14 mmol/L (10-20); BUN (Urea Nitrogen) 10 mg/dL (8.4-25.7); Bilirubin, Total 0.8 mg/dL (0.2-1.2); Calc. Creatinine Clearance 90 mL/min (70-130); Calcium 8.8 mg/dL (7.8-10.44); Carbon Dioxide 25 mmol/L (22-29); Chloride 100 mmol/L (98-107); Estimated GFR-MDRD 81; Globulin 2.5 g/dL (2.4-3.5); Glucose 99 mg/dL (70-105); Magnesium 1.8 mg/dL (1.6-2.6); Potassium 4.8 mmol/L (3.5-5.1); Protein, Total 5.8 g/dL (6.0-8.3); Sodium 134 mmol/L (136-145)
--- NOTE | 2018-11-04 08:44 | RAD ---
Exam: Chest 2 views HISTORY:Short of breath Comparison: 11/01/2018 FINDINGS: Extrinsic artifacts limit visualization Lungs: Bibasilar consolidation. Elevation of right hemidiaphragm Cardiac silhouette:Stable Pulmonary vessels: Mild central pulmonary vascular prominence Pleural Spaces: Bilateral pleural-based densities at each inferior hemithorax Pneumothorax: None Osseous abnormalities: None of acuity. IMPRESSION: Bibasilar opacities which may relate to pleural fluid with adjacent atelectasis and/or pn eumonia. Recommend continued imaging follow-up.
[2018-11-04] MEDS: Multivit, Therapeutic 1 TAB PO SCH (09:26)
[2018-11-04] MEDS: HYDROcodone/Acetaminophen 10/325 mg Tablet PO PRN ×2 (09:26→19:52)
[2018-11-04] MEDS: Saccharomyces boulardii 250 MG CAP PO SCH (09:26)
[2018-11-04] MEDS: Famotidine 20 MG TAB PO SCH ×2 (09:26→19:52)
[2018-11-04] MEDS: Enoxaparin Sodium 40 MG/0.4 ML SYRINGE SC SCH (09:27)
[2018-11-04] MEDS: Iron, Sodium Ferric Gluconate 250 MG in Sodium Chloride 0.9% 250 ML 250 ML IVPB SCH (09:27)
[2018-11-04] MEDS: Famotidine/PF 20 mg/2ml Vial SLOW IVP SCH ×2 (09:27→19:58)
[2018-11-04] MEDS: Polyethylene Glycol 3350 17 GM Packet PO SCH (09:41)
--- NOTE | 2018-11-04 10:33 | PRG ---
DATE OF SERVICE: 11/04/2018 SUBJECTIVE: The patient states he feels sore. His chest pain is better. He has had a little bit of nausea. No vomiting. He is tolerating liquids. He is passing flatus. No bowel movement. OBJECTIVE: VITAL SIGNS: His heart rate is 69, in sinus rhythm. He is afebrile at 98.4, blood pressure 100/56, O2 saturations of 94% on 2 L. GENERAL: He is awake, alert. ABDOMEN: A little bit distended. Incisions are fine. LABORATORY DATA: His white count is 10, hemoglobin and hematocrit are 8.6 and 26, and platelet count 241. Electrolytes are fine. ASSESSMENT: Status post emergent reexploration for inferior epigastric artery bleed, complicated by atrial fibrillation and chest pain. Cardiology would like to eventually do a cardiac cath on him, but afraid to anticoagulate him at this time, he is on Lovenox. PLAN: Continue liquid diet. Get him out of bed. Also a Dulcolax suppository. Job ID: [id number]
--- NOTE | 2018-11-04 16:19 | PDOC.CTH ---
Cardiology Progress Note - Subjective No new issues. Doing better. No chest pain. breathing at baseline. - Objective Vital Signs Temp Pulse Resp BP Pulse Ox 11/04/18 14:21 70 20 90 L 11/04/18 12:00 98.2 F 78 18 113/68 93 L 11/04/18 10:30 73 16 90 L 11/04/18 08:00 98.4 F 69 20 100/56 L 94 L 11/04/18 07:43 94 L 11/04/18 06:45 92 L 11/04/18 06:42 74 16 92 L Admit Weight 165 lb Weight 165 lb 11/03/18 11/04/18 11/05/18 06:59 06:59 06:59 Intake Total 2150 2970 Output Total 1825 2175 Balance 325 795 - Physical Examination General/Neuro: alert & oriented x3, NAD Neck: no JVD present Lungs: CTA, unlabored respirations Heart: RRR Abdomen: NT/ND Extremities: other: (no edema) - Telemetry Telemetry Rhythm: NSR - Labs Result Diagrams: 11/04/18 05:21 11/04/18 05:21 Troponin/CKMB Troponin I 0.014 ng/mL (< 0.028) 11/03/18 07:44 - Assessment/Plan 1. Afib RVR, back to sinus 2. Chest pain PLAN: - Stop diltiazem drip and will start PO Coreg, low dose as BP borerline low. - Aspirin alone for stroke prophylaxis aas CHADS VASc score of 0 and recent bleeding. Start when safe from surgical perspective. - Continue other meds per primary team. - Will sign off. Please call with any questions.
[2018-11-04] MEDS ORDERED: Carvedilol 3.125 MG TAB PO SCH (18:00)
--- NOTE | 2018-11-04 22:41 | PDOC.PN ---
- Subjective Encounter Start Date: 11/04/18 Encounter Start Time: 14:30 Patient seen and examined for med mngt. In SR. Abd pain slowly improving. No BM. No other complaints. No overnight events - Objective MAR Reviewed: Yes Vital Signs & Weight: Vital Signs (12 hours) Temp Pulse Resp BP Pulse Ox 11/04/18 22:16 72 14 92 L 11/04/18 19:47 98.8 F 79 18 116/69 95 11/04/18 18:20 79 14 87 L 11/04/18 16:00 68 16 101/68 95 11/04/18 14:21 70 20 90 L 11/04/18 12:00 98.2 F 78 18 113/68 93 L Weight Admit Weight 165 lb Weight 165 lb I&O: 11/03/18 11/04/18 11/05/18 06:59 06:59 06:59 Intake Total 2150 2970 Output Total 1825 2175 Balance 325 795 Result Diagrams: 11/05/18 06:05 11/05/18 06:05 Radiology Reviewed by me: Yes (CXR - Bibasilar consolidation vs Atelectasis) EKG Reviewed by me: Yes (Tele SR) Phys Exam - Physical Examination Constitutional: NAD Respiratory: no wheezing, no rhonchi dec AE at bases Cardiovascular: RRR, no rub Gastrointestinal: soft, positive bowel sounds Musculoskeletal: no edema Neurological: moves all 4 limbs Dx/Plan - Plan DVT proph w/lovenox, DVT proph w/SCDs IMPRESSION: Afib with RVR - in SR - Off Cardizem drip Atypical CP/SOB due to Atelectasis Tobacco dependence Hyponatremia Acute blood loss Anemia due to retroperitoneal hemorrhage- s/p IV iron infusion PLAN: Cont Coreg Will start Aspirin for Stroke prophylaxis when ok with Surgery Cont IS/EZPAP Cont IVF/Atbx per primary team Not a candidate for other form of anticoag due to Anemia Review of Systems - Review of Systems Respiratory: SOB with Excertion. negative: Cough, Dry, Shortness of Breath, Hemoptysis, Pleuritic Pain, Sputum, Wheezing Cardiovascular: negative: chest pain, palpitations, orthopnea, paroxysmal nocturnal dyspnea, edema, light headedness, other - Medications/Allergies Allergies/Adverse Reactions: Allergies Allergy/AdvReac Type Severity Reaction Status Date / Time No Known Allergies Allergy Verified 10/31/18 23:52 Medications: Current Medications Acetaminophen (Tylenol) 650 mg PO Q4H PRN PRN Reason: Headache/Fever/Mild Pain (1-3) Last Admin: 11/03/18 21:51 Dose: 650 mg Acetaminophen (Tylenol) 650 mg DE Q4H PRN PRN Reason: Headache/Fever/Mild Pain (1-3) Hydrocodone Bitart/Acetaminophen ([place] 10/325) 1 tab PO Q4H PRN PRN Reason: Mild-Moderate Pain (1-5) Last Admin: 11/04/18 19:52 Dose: 1 tab Hydrocodone Bitart/Acetaminophen ([place] 10/325) 2 tab PO Q4H PRN PRN Reason: Severe Pain (7-10) Last Admin: 11/03/18 16:49 Dose: 2 tab Albuterol/Ipratropium (Duoneb) 3 ml EZPAP [id number] Last Admin: 11/04/18 22:16 Dose: 3 ml Bisacodyl (Dulcolax) 10 mg DE Q8H PRN PRN Reason: Constipation Carvedilol (Coreg) 3.125 mg PO BID-[facility] [place] Dextrose/Water (Dextrose 50%) 25 gm SLOW IVP PRN PRN PRN Reason: Hypoglycemia Enoxaparin Sodium (Lovenox) 40 mg SC 0900 [facility] Last Admin: 11/04/18 09:27 Dose: 40 mg Famotidine (Pepcid) 20 mg PO Q12HR [facility] Last Admin: 11/04/18 19:52 Dose: 20 mg Famotidine (Pepcid) 20 mg SLOW IVP Q12HR [facility] Last Admin: 11/04/18 19:58 Dose: Not Given Glucagon (Glucagon) 1 mg IM PRN PRN PRN Reason: Hypoglycemia Hydralazine HCl (Apresoline) 10 mg SLOW IVP Q4H PRN PRN Reason: SBP > 170 or DBP > 100 Potassium Chloride/Dextrose/Sod Cl (D5 1/2 Ns W/20 Meq Kcl) 1,000 mls @ 110 mls /hr IV .Q9H6M [facility] Last Admin: 11/04/18 16:26 Dose: 1,000 mls Dextrose/Water (D5w) 1,000 mls @ 0 mls/hr IV .Q0M PRN PRN Reason: Hypoglycemia Piperacillin Sod/Tazobactam (Sod 3.375 gm/ Sodium Chloride) 100 mls @ 200 mls/ hr IVPB 0300,0900,1500,2100 [facility] Last Admin: 11/04/18 19:52 Dose: 100 mls Morphine Sulfate (Morphine) 2 mg SLOW IVP Q2H PRN PRN Reason: Moderate Pain (4-6) Last Admin: 11/03/18 15:14 Dose: 2 mg Morphine Sulfate (Morphine) 4 mg SLOW IVP Q2H PRN PRN Reason: Severe Pain (7-10) Last Admin: 11/01/18 09:22 Dose: 4 mg Multivitamins (Theragran) 1 tab PO DAILY [facility] Last Admin: 11/04/18 09:26 Dose: 1 tab Nicotine (Nicoderm Patch) 14 mg TD Q24H PRN PRN Reason: Smoking craving Last Admin: 11/02/18 12:31 Dose: 14 mg Nitroglycerin (Nitrostat) 0.4 mg PO Q5MIN PRN PRN Reason: Chest Pain Ondansetron HCl (Zofran) 4 mg IVP Q6H PRN PRN Reason: Nausea/Vomiting Last Admin: 11/03/18 11:17 Dose: 4 mg Polyethylene Glycol (Miralax) 17 gm PO DAILY [facility] Last Admin: 11/04/18 09:41 Dose: Not Given Promethazine HCl (Phenergan) 12.5 mg IM Q4H PRN PRN Reason: Nausea/Vomiting Saccharomyces Boulardii (Florastor) 250 mg PO DAILY [facility] Last Admin: 11/04/18 09:26 Dose: 250 mg Senna (Senokot) 2 tab PO HSPRN PRN PRN Reason: Constipation Last Admin: 11/03/18 08:56 Dose: 2 tab Sodium Chloride (Flush - Normal Saline) 10 ml IVF PRN PRN PRN Reason: Saline Flush Last Admin: 11/03/18 08:40 Dose: 10 ml Sodium Chloride (Flush - Normal Saline) 10 ml IVF PRN PRN PRN Reason: Saline Flush
[2018-11-05] MEDS: Piperacillin/Tazobactam 3.375 GM in Sodium Chloride 0.9% 100 ML IVPB SCH ×4 (03:59→20:46)
[2018-11-05] MEDS: D5 1/2 NS w/20 mEq KCL 1,000 ML IV SCH ×2 (03:59→07:49)
[2018-11-05 06:43] LABS: #Eosinphils 0.8 thou/uL (0.0-0.7); #Lymphocytes 1.8 thou/uL (1.20-3.40); #Monocytes 1.5 thou/uL (0.11-0.59); %Basophils 0.3 % (0.0-1.0); %Eosinophils 7.1 % (0.0-10.0); %Lymphocytes 15.8 % (21.0-51.0); %Monocytes 13.6 % (0.0-10.0); %Neutrophils 63.2 % (42.0-75.0); Hemoglobin 9.6 g/dL (14.0-18.0); Mean Corpuscular HGB CONC 32.1 g/dL (32.0-36.0); Mean Corpuscular Hemoglobin 30.4 pg (27.0-31.0); Mean Corpuscular Volume 94.6 fL (78.0-98.0); Mean Platelet Volume 7.2 fL (7.4-10.4); Platelet Count 329 thou/uL (130-400); RBC Distribution Width 12.1 % (11.5-14.5); Red Blood Cell (RBC) Count 3.15 mill/uL (4.70-6.10); White Blood Cell (WBC) Count 11.1 thou/uL (4.8-10.8)
[2018-11-05 07:05] LABS: ALT (SGPT) 33 U/L (8-55); AST (SGOT) 29 U/L (5-34); Albumin 3.5 g/dL (3.5-5.0); Alkaline Phosphatase 61 U/L (40-150); Anion Gap 16 mmol/L (10-20); BUN (Urea Nitrogen) 11 mg/dL (8.4-25.7); Bilirubin, Total 1.1 mg/dL (0.2-1.2); Calc. Creatinine Clearance 87 mL/min (70-130); Calcium 9.2 mg/dL (7.8-10.44); Carbon Dioxide 24 mmol/L (22-29); Chloride 100 mmol/L (98-107); Estimated GFR-MDRD 78; Globulin 2.9 g/dL (2.4-3.5); Glucose 85 mg/dL (70-105); Potassium 4.9 mmol/L (3.5-5.1); Protein, Total 6.4 g/dL (6.0-8.3); Sodium 135 mmol/L (136-145)
[2018-11-05] MEDS ORDERED: Polyethylene Glycol 3350 17 GM Packet PO PRN (07:24)
[2018-11-05] MEDS: Enoxaparin Sodium 40 MG/0.4 ML SYRINGE SC SCH (07:50)
[2018-11-05] MEDS: Polyethylene Glycol 3350 17 GM Packet PO SCH (07:50)
[2018-11-05] MEDS: HYDROcodone/Acetaminophen 10/325 mg Tablet PO PRN ×2 (07:51→14:26)
[2018-11-05] MEDS: Multivit, Therapeutic 1 TAB PO SCH (07:52)
[2018-11-05] MEDS: Famotidine 20 MG TAB PO SCH ×2 (07:52→20:46)
[2018-11-05] MEDS: Famotidine/PF 20 mg/2ml Vial SLOW IVP SCH ×2 (07:52→20:46)
[2018-11-05] MEDS: Saccharomyces boulardii 250 MG CAP PO SCH (07:52)
[2018-11-05] MEDS: Carvedilol 3.125 MG TAB PO SCH ×2 (07:53→16:24)
[2018-11-05] MEDS: Senokot S 8.6-50 MG TAB PO SCH ×2 (10:40→20:46)
[2018-11-05] MEDS ORDERED: Polyethylene Glycol 3350 17 GM Packet PO SCH (13:15)
[2018-11-05] MEDS ORDERED: Fleet Enema 133 ML BOT FS PRN (13:15)
[2018-11-05] MEDS ORDERED: Aspirin 81 mg Enteric Coated Tablet PO SCH (13:30)
--- NOTE | 2018-11-05 16:34 | PDOC.GSPN ---
Surgery Progress Note: Subj - Subjective Narrative: Patient doesn't feel very good. He has some bloating and hasn't been able to have a bowel movement since he's been in the hospital. He has passed gas and he is not nauseated. Suppositories haven't helped. He denies any chest pain or shortness of breath although he has some occasional heartburn which is relieved by belching. He is still quite sore in the inguinal areas which make it difficult for him to ambulate. He is still requiring oxygen but other vital signs are good. H&H are stable. His incisions are healing well. Abdomen is soft and nontender and bowel sounds are present. Echo showed a possible thrombus versus vegetation on his tricuspid valve. Assessment/plan: Doing well from a surgical standpoint. He has not had a bowel movement in almost a week so I ordered an enema and some laxatives. If this does not produce some relief then we will do some imaging but clinically he does not appear to have a bowel obstruction. Should be safe to anticoagulate if needed at this point. I have discussed his case with cardiology and hospitalist and they are deciding what to do regarding the finding of a possible vegetation versus thrombus on his tricuspid valve. Cardiology is favoring an old vegetation but blood cultures are going to be ordered. They did want to start him on aspirin which should be fine. If they decide to fully anticoagulate him that should also be reasonable although I would prefer not to use a nonreversible anticoagulant. Surgery Progress Note: Obj - Vital signs Vital signs: Vital Signs - Most Recent Temp Pulse Resp BP Pulse Ox 9.3 F L 80 14 100/61 95 11/05/18 08:00 11/05/18 14:06 11/05/18 14:06 11/05/18 08:00 11/05/18 08:00 Surgery Progress Note: Results - Labs Result Diagrams: 11/05/18 06:05 11/05/18 06:05 Lab results: Laboratory Results - last 24 hr 11/05/18 11/05/18 06:05 06:05 WBC 11.1 H RBC 3.15 L Hgb 9.6 L Hct 29.8 L MCV 94.6 MCH 30.4 MCHC 32.1 RDW 12.1 Plt Count 329 MPV 7.2 L Neutrophils % 63.2 Lymphocytes % 15.8 L Monocytes % 13.6 H Eosinophils % 7.1 Basophils % 0.3 Neutrophils # 7.0 H Lymphocytes # 1.8 Monocytes # 1.5 H Eosinophils # 0.8 H Basophils # 0.0 Sodium 135 L Potassium 4.9 Chloride 100 Carbon Dioxide 24 Anion Gap 16 BUN 11 Creatinine 0.99 Estimated GFR (MDRD) 78 Glucose 85 Calcium 9.2 Magnesium 2.0 Total Bilirubin 1.1 AST 29 ALT 33 Alkaline Phosphatase 61 Serum Total Protein 6.4 Albumin 3.5 Globulin 2.9 Albumin/Globulin Ratio 1.2
--- NOTE | 2018-11-05 17:03 | PDOC.PN ---
- Subjective Encounter Start Date: 11/05/18 Encounter Start Time: 14:00 Patient seen and examined for med mngt. No CP/SOB. No new complaints. No overnight events - Objective MAR Reviewed: Yes Vital Signs & Weight: Vital Signs (12 hours) Temp Pulse Resp BP Pulse Ox 11/05/18 16:00 99.6 F 74 19 100/59 L 95 11/05/18 14:06 80 14 11/05/18 12:00 98.9 F 77 18 99/60 95 11/05/18 10:38 70 14 11/05/18 08:00 99.3 F 76 18 100/61 95 11/05/18 06:46 80 14 Weight Admit Weight 165 lb Weight 165 lb I&O: 11/04/18 11/05/18 11/06/18 06:59 06:59 06:59 Intake Total 2970 1133 Output Total 2175 800 Balance 795 333 Result Diagrams: 11/05/18 06:05 11/05/18 06:05 Radiology Reviewed by me: No (Echo - ?Vegetation vs thrombus) EKG Reviewed by me: Yes (Tele SR) Phys Exam - Physical Examination Constitutional: NAD Respiratory: no wheezing, no rhonchi Cardiovascular: RRR, no rub Gastrointestinal: soft, non-tender, positive bowel sounds Musculoskeletal: no edema Dx/Plan - Plan DVT proph w/lovenox, DVT proph w/SCDs IMPRESSION: Afib with RVR - in SR - Off Cardizem drip Vegatation vs thrombus on Tricuspid valve Atypical CP/SOB due to Atelectasis Tobacco dependence Hyponatremia Acute blood loss Anemia due to retroperitoneal hemorrhage- s/p IV iron infusion PLAN: Blood cultures Consult ID Start Vancomycin Monitor Vancomycin level Cont Coreg Start low dose Aspirin for Stroke prophylaxis - I confirmed with Gen Surgery Cont IS/EZPAP Reduce IVF Review of Systems - Review of Systems Respiratory: negative: Cough, Dry, Shortness of Breath, Hemoptysis, SOB with Excertion, Pleuritic Pain, Sputum, Wheezing Cardiovascular: negative: chest pain, palpitations, orthopnea, paroxysmal nocturnal dyspnea, edema, light headedness, other - Medications/Allergies Allergies/Adverse Reactions: Allergies Allergy/AdvReac Type Severity Reaction Status Date / Time No Known Allergies Allergy Verified 10/31/18 23:52 Medications: Current Medications Acetaminophen (Tylenol) 650 mg PO Q4H PRN PRN Reason: Headache/Fever/Mild Pain (1-3) Last Admin: 11/03/18 21:51 Dose: 650 mg Acetaminophen (Tylenol) 650 mg ND Q4H PRN PRN Reason: Headache/Fever/Mild Pain (1-3) Hydrocodone Bitart/Acetaminophen ([place] 10/325) 1 tab PO Q4H PRN PRN Reason: Mild-Moderate Pain (1-5) Last Admin: 11/05/18 14:26 Dose: 1 tab Hydrocodone Bitart/Acetaminophen ([place] 10/325) 2 tab PO Q4H PRN PRN Reason: Severe Pain (7-10) Last Admin: 11/03/18 16:49 Dose: 2 tab Albuterol/Ipratropium (Duoneb) 3 ml EZPAP [id number] [facility] Last Admin: 11/05/18 14:06 Dose: 3 ml Aspirin (Ecotrin) 81 mg PO DAILY [facility] Bisacodyl (Dulcolax) 10 mg ND Q8H PRN PRN Reason: Constipation Carvedilol (Coreg) 3.125 mg PO BID-[facility] Last Admin: 11/05/18 16:24 Dose: 3.125 mg Dextrose/Water (Dextrose 50%) 25 gm SLOW IVP PRN PRN PRN Reason: Hypoglycemia Docusate Sodium (Colace) 100 mg PO BID [facility] Enoxaparin Sodium (Lovenox) 40 mg SC 0900 [facility] Last Admin: 11/05/18 07:50 Dose: 40 mg Famotidine (Pepcid) 20 mg PO Q12HR [facility] Last Admin: 11/05/18 07:52 Dose: 20 mg Famotidine (Pepcid) 20 mg SLOW IVP Q12HR [facility] Last Admin: 11/05/18 07:52 Dose: Not Given Glucagon (Glucagon) 1 mg IM PRN PRN PRN Reason: Hypoglycemia Hydralazine HCl (Apresoline) 10 mg SLOW IVP Q4H PRN PRN Reason: SBP > 170 or DBP > 100 Dextrose/Water (D5w) 1,000 mls @ 0 mls/hr IV .Q0M PRN PRN Reason: Hypoglycemia Piperacillin Sod/Tazobactam (Sod 3.375 gm/ Sodium Chloride) 100 mls @ 200 mls/ hr IVPB 0300,0900,1500,2100 [facility] Last Admin: 11/05/18 14:26 Dose: 100 mls Potassium Chloride/Dextrose/Sod Cl (D5 1/2 Ns W/20 Meq Kcl) 1,000 mls @ 50 mls/ hr IV .Q20H [facility] Last Admin: 11/05/18 07:49 Dose: 1,000 mls Morphine Sulfate (Morphine) 2 mg SLOW IVP Q2H PRN PRN Reason: Moderate Pain (4-6) Last Admin: 11/03/18 15:14 Dose: 2 mg Morphine Sulfate (Morphine) 4 mg SLOW IVP Q2H PRN PRN Reason: Severe Pain (7-10) Last Admin: 11/01/18 09:22 Dose: 4 mg Multivitamins (Theragran) 1 tab PO DAILY [facility] Last Admin: 11/05/18 07:52 Dose: 1 tab Nicotine (Nicoderm Patch) 14 mg TD Q24H PRN PRN Reason: Smoking craving Last Admin: 11/02/18 12:31 Dose: 14 mg Nitroglycerin (Nitrostat) 0.4 mg PO Q5MIN PRN PRN Reason: Chest Pain Ondansetron HCl (Zofran) 4 mg IVP Q6H PRN PRN Reason: Nausea/Vomiting Last Admin: 11/03/18 11:17 Dose: 4 mg Polyethylene Glycol (Miralax) 17 gm PO DAILY [facility] Last Admin: 11/05/18 07:50 Dose: 17 gm Promethazine HCl (Phenergan) 12.5 mg IM Q4H PRN PRN Reason: Nausea/Vomiting Saccharomyces Boulardii (Florastor) 250 mg PO DAILY [facility] Last Admin: 11/05/18 07:52 Dose: 250 mg Senna/Docusate Sodium (Senokot S) 1 tab PO BID [facility] Last Admin: 11/05/18 10:40 Dose: 1 tab Sodium Chloride (Flush - Normal Saline) 10 ml IVF PRN PRN PRN Reason: Saline Flush Last Admin: 11/03/18 08:40 Dose: 10 ml Sodium Chloride (Flush - Normal Saline) 10 ml IVF PRN PRN PRN Reason: Saline Flush
[2018-11-05] MEDS ORDERED: Vancomycin HCl 1 GM in Premix Bag 1 BAG IVPB SCH (17:15)
--- NOTE | 2018-11-05 17:41 | CON ---
DATE OF CONSULTATION: 11/05/2018 REASON FOR CONSULTATION: Possible vegetation in tricuspid valve associated with fever. HISTORY OF PRESENT ILLNESS: A 58-year-old patient, who had admission on October 31 because of massive bilateral inguinal hernias. He underwent repair by Dr. Hoffman and developed a postop bleeding. A CT scan was concerning for larger artery, but it turned out to be smaller one, which was able to be controlled by Dr. Hoffman without the need for intervention by the Cardiovascular Surgeon. The patient subsequently developed fever and he also had some atrial arrhythmias included particularly the atrial fibrillation with RVR. Dr. Marie did a 2D echo and there was a concern with possible tricuspid valve vegetation. This is a possible finding not yet confirmed. The patient is currently awake and somewhat confused, but he knows his name and knows the name of the hospital. He denies any headaches. No visual symptoms, sore throat, odynophagia, or dysphagia. No dyspnea. No chest pain. No cough. Moderate abdominal pain at the surgical sites. He has a perception of difficulty with urination and has been constipated now for 7 days. PAST MEDICAL HISTORY: Chronic smoking. PAST SURGICAL HISTORY: Hernias with repair and postop bleeding, ligation of inferior epigastric artery and recurrent hernia repair with mesh. ALLERGIES: NONE. SOCIAL HISTORY: Former user of drugs by inhalation. He used to drink previously but is abstinent for several months. Still smoking daily about half a pack. 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 FAMILY HISTORY: Noncontributory. PHYSICAL EXAMINATION: VITAL SIGNS: Temperature max 101.9 the day before yesterday, T-max today 99.3; blood pressure 100/61, pulse 70, respirations 14 to 18, and O2 sat 95%. SKIN: Shows surgical sites in the groins with no erythema and no drainage at this point. Stitches in place along the left and right groin incisions. GENERAL: The patient has a peripheral IV access and is voiding in the urinal. Awake, alert, oriented times self and place. Could not tell me the date. HEENT: Ocular movements conjugate. Oral cavity with only a few remaining teeth in place with marked decay. NECK: Supple. No jugular vein distention or carotid bruits. No lymphadenopathy. LUNGS: With symmetric clear breath sounds. HEART: S1 and S2, regular rate. No S3 or S4. ABDOMEN: Soft, not distended. There is tenderness in suprapubic area, but that is right along the surgical incisions, so I do not know if it is the bladder or if it is the incisions that are bothering him. GENITAL: Normal. MUSCULOSKELETAL: There is no joint inflammatory activity. Pulses 1+ in dorsalis pedis. Plantar response are flexor. No clonus. No edema. He is able to move extremities equally, although he is diffusely weak. NEUROLOGIC: He is awake. Speech is normal. Follows commands. Establishes eye contact. LABORATORY DATA: White cell count was of 9 and now is 11, platelets 329, hemoglobin 9.6, MCV 94, 63% neutrophils, 15% lymphocytes, 13% monocytes. PH of 7.38, pCO2 of 32, and pO2 of 473. This is after surgery when the patient was intubated. The chemistry was not remarkable except for albumin 3.3 and sodium 135, and plasma alcohol was less than 10. Microbiology; we have 2 sets of blood cultures pending at this time. The echocardiogram, which was completed yesterday showed EF of 60% to 65%, right ventricle cavity normal, left atrium moderately dilated. Mitral valve normal. Mild tricuspid regurgitation and possible vegetation or thrombus attached to the valve to the tricuspid valve. ASSESSMENT: Chronic smoking and previous history of drug use and history of hernia repair with postop bleeding with ligation of inferior epigastric artery with resolution of bleeding and now this serendipitous finding of possible vegetation in tricuspid valve. DISCUSSION: The differential diagnosis includes postop fever associated with extensive bleeding and hematoma formation, which is the more likely scenario. The finding in the valve will have to be confirmed with a FAISAL. If that is not confirmed, then we do not have to work it up any further. Blood cultures are pending and that may be of assistance as well. If the blood cultures remain negative and the FAISAL does not reveal any abnormalities of significance, then no further intervention is needed other than anticoagulation. If blood cultures are positive and/or the FAISAL is positive, then we will have to do further evaluation and treatment for endocarditis. Job ID: [id number] [facility]
[2018-11-05] MEDS ORDERED: Vancomycin HCl 1.75 GM in Sodium Chloride 0.9% 500 ML IVPB SCH (18:00)
[2018-11-05] MEDS: Docusate 100 MG CAP PO SCH (20:46)
[2018-11-05] MEDS: Acetaminophen 325 MG TAB PO PRN (20:51)
[2018-11-06] MEDS: Piperacillin/Tazobactam 3.375 GM in Sodium Chloride 0.9% 100 ML IVPB SCH ×4 (03:05→20:39)
[2018-11-06] MEDS: HYDROcodone/Acetaminophen 10/325 mg Tablet PO PRN ×2 (05:25→20:40)
[2018-11-06] MEDS: Vancomycin HCl 1.25 GM in Sodium Chloride 0.9% 250 ML 250 ML IVPB SCH ×2 (05:28→18:07)
[2018-11-06 06:18] LABS: #Eosinphils 0.5 thou/uL (0.0-0.7); #Lymphocytes 1.5 thou/uL (1.20-3.40); #Monocytes 1.4 thou/uL (0.11-0.59); %Basophils 0.3 % (0.0-1.0); %Eosinophils 4.4 % (0.0-10.0); %Lymphocytes 14.4 % (21.0-51.0); %Monocytes 13.7 % (0.0-10.0); %Neutrophils 67.2 % (42.0-75.0); Hemoglobin 9.7 g/dL (14.0-18.0); Mean Corpuscular HGB CONC 34.4 g/dL (32.0-36.0); Mean Corpuscular Hemoglobin 31.2 pg (27.0-31.0); Mean Corpuscular Volume 90.5 fL (78.0-98.0); Mean Platelet Volume 7.3 fL (7.4-10.4); Platelet Count 290 thou/uL (130-400); RBC Distribution Width 12.2 % (11.5-14.5); Red Blood Cell (RBC) Count 3.12 mill/uL (4.70-6.10); White Blood Cell (WBC) Count 10.5 thou/uL (4.8-10.8)
[2018-11-06 06:28] LABS: Anion Gap 13 mmol/L (10-20); BUN (Urea Nitrogen) 14 mg/dL (8.4-25.7); Calc. Creatinine Clearance 87 mL/min (70-130); Carbon Dioxide 25 mmol/L (22-29); Chloride 101 mmol/L (98-107); Estimated GFR-MDRD 78; Glucose 82 mg/dL (70-105); Potassium 4.1 mmol/L (3.5-5.1); Sodium 135 mmol/L (136-145)
[2018-11-06] MEDS: Carvedilol 3.125 MG TAB PO SCH ×2 (08:08→16:43)
[2018-11-06] MEDS: Senokot S 8.6-50 MG TAB PO SCH ×2 (08:08→20:44)
[2018-11-06] MEDS: Saccharomyces boulardii 250 MG CAP PO SCH (08:08)
[2018-11-06] MEDS: Multivit, Therapeutic 1 TAB PO SCH (08:08)
[2018-11-06] MEDS: Famotidine 20 MG TAB PO SCH ×2 (08:09→20:41)
[2018-11-06] MEDS: Aspirin 81 mg Enteric Coated Tablet PO SCH (08:09)
[2018-11-06] MEDS: Famotidine/PF 20 mg/2ml Vial SLOW IVP SCH ×2 (08:09→20:56)
[2018-11-06] MEDS: Docusate 100 MG CAP PO SCH ×2 (08:09→20:44)
[2018-11-06] MEDS: Polyethylene Glycol 3350 17 GM Packet PO SCH (08:09)
[2018-11-06] MEDS: D5 1/2 NS w/20 mEq KCL 1,000 ML IV SCH (08:12)
[2018-11-06] MEDS: Enoxaparin Sodium 40 MG/0.4 ML SYRINGE SC SCH (08:13)
--- NOTE | 2018-11-06 15:33 | PDOC.GSPN ---
Surgery Progress Note: Subj - Subjective Narrative: Patient continues to Feel weak with little appetite. He is only taking a few bites of food and then he feels full. He does have some nausea. He did have some bowel movements after the enema yesterday but still feels bloated and uncomfortable. Vitals are okay. Abdomen is soft slightly distended and sore above the incisions. Assessment/plan: Status post repair of massive bilateral inguinal hernias, with postoperative epigastric artery bleeding requiring reexploration on the right. He continues to have nausea and bloating although he is having some bowel movements. I suspect this is an ileus but we'll get an x-ray to evaluate for possible obstruction. He is undergoing workup for endocarditis due to vegetation versus thrombus on itself. He is on prophylactic dose Lovenox as well as aspirin. He has been transitioned to oral treatment for his atrial fibrillation. Surgery Progress Note: Obj - Vital signs Vital signs: Vital Signs - Most Recent Temp Pulse Resp BP Pulse Ox 98.1 F 90 18 100/65 97 11/06/18 15:20 11/06/18 15:20 11/06/18 15:20 11/06/18 15:20 11/06/18 15:20 Surgery Progress Note: Results - Labs Result Diagrams: 11/06/18 05:18 11/06/18 05:18 Lab results: Laboratory Results - last 24 hr 11/06/18 11/06/18 05:18 05:18 WBC 10.5 RBC 3.12 L Hgb 9.7 L Hct 28.2 L MCV 90.5 MCH 31.2 H MCHC 34.4 RDW 12.2 Plt Count 290 MPV 7.3 L Neutrophils % 67.2 Lymphocytes % 14.4 L Monocytes % 13.7 H Eosinophils % 4.4 Basophils % 0.3 Neutrophils # 7.0 H Lymphocytes # 1.5 Monocytes # 1.4 H Eosinophils # 0.5 Basophils # 0.0 Sodium 135 L Potassium 4.1 Chloride 101 Carbon Dioxide 25 Anion Gap 13 BUN 14 Creatinine 0.99 Estimated GFR (MDRD) 78 Glucose 82 Calcium 9.0
--- NOTE | 2018-11-06 15:36 | PDOC.PN ---
- Subjective Encounter Start Date: 11/06/18 Encounter Start Time: 10:30 Patient seen and examined for medical mgnt. No CP. Had BM. Abd pain improving. No new complaints. No overnight events - Objective MAR Reviewed: Yes Vital Signs & Weight: Vital Signs (12 hours) Temp Pulse Resp BP Pulse Ox 11/06/18 15:20 98.1 F 90 18 100/65 97 11/06/18 14:01 80 14 11/06/18 12:10 98.1 F 72 18 102/70 97 11/06/18 10:37 70 14 11/06/18 08:00 98.3 F 74 17 99/65 97 11/06/18 06:50 80 16 Weight Admit Weight 165 lb Weight 165 lb I&O: 11/05/18 11/06/18 11/07/18 06:59 06:59 06:59 Intake Total 1133 Output Total 800 Balance 333 Result Diagrams: 11/06/18 05:18 11/06/18 05:18 EKG Reviewed by me: Yes (Tele SR) Phys Exam - Physical Examination Constitutional: NAD Respiratory: no wheezing, no rhonchi Cardiovascular: RRR, no rub Gastrointestinal: soft, positive bowel sounds gen tender Musculoskeletal: no edema Neurological: moves all 4 limbs Dx/Plan - Plan DVT proph w/SCDs IMPRESSION: Afib with RVR - in SR - Off Cardizem drip Vegatation vs thrombus on Tricuspid valve Atypical CP/SOB due to Atelectasis Tobacco dependence Hyponatremia Acute blood loss Anemia due to retroperitoneal hemorrhage- s/p IV iron infusion PLAN: Blood cultures negative so far Cont Vancomycin Cont Coreg On low dose Aspirin for Stroke prophylaxis Cont IS/EZPAP NPO past MN for FAISAL Review of Systems - Review of Systems Respiratory: negative: Cough, Dry, Shortness of Breath, Hemoptysis, SOB with Excertion, Pleuritic Pain, Sputum, Wheezing Cardiovascular: negative: chest pain, palpitations, orthopnea, paroxysmal nocturnal dyspnea, edema, light headedness, other - Medications/Allergies Allergies/Adverse Reactions: Allergies Allergy/AdvReac Type Severity Reaction Status Date / Time No Known Allergies Allergy Verified 10/31/18 23:52 Medications: Current Medications Acetaminophen (Tylenol) 650 mg PO Q4H PRN PRN Reason: Headache/Fever/Mild Pain (1-3) Last Admin: 11/05/18 20:51 Dose: 650 mg Acetaminophen (Tylenol) 650 mg [place] Q4H PRN PRN Reason: Headache/Fever/Mild Pain (1-3) Hydrocodone Bitart/Acetaminophen ([place] 10/325) 1 tab PO Q4H PRN PRN Reason: Mild-Moderate Pain (1-5) Last Admin: 11/06/18 05:25 Dose: 1 tab Hydrocodone Bitart/Acetaminophen ([place] 10/325) 2 tab PO Q4H PRN PRN Reason: Severe Pain (7-10) Last Admin: 11/03/18 16:49 Dose: 2 tab Albuterol/Ipratropium (Duoneb) 3 ml EZPAP [id number] Last Admin: 11/06/18 14:01 Dose: 3 ml Aspirin (Ecotrin) 81 mg PO DAILY [facility] Last Admin: 11/06/18 08:09 Dose: 81 mg Bisacodyl (Dulcolax) 10 mg [place] Q8H PRN PRN Reason: Constipation Carvedilol (Coreg) 3.125 mg PO BID-[facility] Last Admin: 11/06/18 08:08 Dose: 3.125 mg Dextrose/Water (Dextrose 50%) 25 gm SLOW IVP PRN PRN PRN Reason: Hypoglycemia Docusate Sodium (Colace) 100 mg PO BID [facility] Last Admin: 11/06/18 08:09 Dose: Not Given Enoxaparin Sodium (Lovenox) 40 mg SC 0900 [facility] Last Admin: 11/06/18 08:13 Dose: 40 mg Famotidine (Pepcid) 20 mg PO Q12HR [facility] Last Admin: 11/06/18 08:09 Dose: 20 mg Famotidine (Pepcid) 20 mg SLOW IVP Q12HR [facility] Last Admin: 11/06/18 08:09 Dose: Not Given Glucagon (Glucagon) 1 mg IM PRN PRN PRN Reason: Hypoglycemia Hydralazine HCl (Apresoline) 10 mg SLOW IVP Q4H PRN PRN Reason: SBP > 170 or DBP > 100 Dextrose/Water (D5w) 1,000 mls @ 0 mls/hr IV .Q0M PRN PRN Reason: Hypoglycemia Piperacillin Sod/Tazobactam (Sod 3.375 gm/ Sodium Chloride) 100 mls @ 200 mls/ hr IVPB 0300,0900,1500,2100 [facility] Last Admin: 11/06/18 15:30 Dose: 100 mls Potassium Chloride/Dextrose/Sod Cl (D5 1/2 Ns W/20 Meq Kcl) 1,000 mls @ 50 mls/ hr IV .Q20H [facility] Last Admin: 11/06/18 08:12 Dose: 1,000 mls Vancomycin HCl 1.25 gm/ Sodium (Chloride) 250 mls @ 166.667 mls/hr IVPB 0600, 1800 [facility] Last Admin: 11/06/18 05:28 Dose: 250 mls Miscellaneous Medication (Pharmacy To Dose) 1 each IVPB PRN PRN PRN Reason: Pharmacy to dose Morphine Sulfate (Morphine) 2 mg SLOW IVP Q2H PRN PRN Reason: Moderate Pain (4-6) Last Admin: 11/03/18 15:14 Dose: 2 mg Morphine Sulfate (Morphine) 4 mg SLOW IVP Q2H PRN PRN Reason: Severe Pain (7-10) Last Admin: 11/01/18 09:22 Dose: 4 mg Multivitamins (Theragran) 1 tab PO DAILY [facility] Last Admin: 11/06/18 08:08 Dose: 1 tab Nicotine (Nicoderm Patch) 14 mg TD Q24H PRN PRN Reason: Smoking craving Last Admin: 11/02/18 12:31 Dose: 14 mg Nitroglycerin (Nitrostat) 0.4 mg PO Q5MIN PRN PRN Reason: Chest Pain Ondansetron HCl (Zofran) 4 mg IVP Q6H PRN PRN Reason: Nausea/Vomiting Last Admin: 11/03/18 11:17 Dose: 4 mg Polyethylene Glycol (Miralax) 17 gm PO DAILY [facility] Last Admin: 11/06/18 08:09 Dose: Not Given Promethazine HCl (Phenergan) 12.5 mg IM Q4H PRN PRN Reason: Nausea/Vomiting Saccharomyces Boulardii (Florastor) 250 mg PO DAILY [facility] Last Admin: 11/06/18 08:08 Dose: 250 mg Senna/Docusate Sodium (Senokot S) 1 tab PO BID [facility] Last Admin: 11/06/18 08:08 Dose: Not Given Sodium Chloride (Flush - Normal Saline) 10 ml IVF PRN PRN PRN Reason: Saline Flush Last Admin: 11/03/18 08:40 Dose: 10 ml Sodium Chloride (Flush - Normal Saline) 10 ml IVF PRN PRN PRN Reason: Saline Flush
--- NOTE | 2018-11-06 16:19 | RAD ---
2 views of abdomen: 11/06/2018 COMPARISON: None HISTORY: Nausea, constipation FINDINGS: Upright imaging demonstrates no free intraperitoneal air. Increased density in the right patrick ng base noted which may signify volume loss or pleural fluid. Air-fluid levels are noted within the colon, which may signify liquid material. A paucity of bowel gas is noted. No dilated small bowel is seen. Cutaneous robert overlie the right hip. Multilevel degenerative change of lower lumbar spine. IMPRESSION: Paucity of bowel gas noted with air-fluid levels within a nondilated colon.
[2018-11-07] MEDS: Piperacillin/Tazobactam 3.375 GM in Sodium Chloride 0.9% 100 ML IVPB SCH ×4 (03:04→22:20)
[2018-11-07] MEDS: HYDROcodone/Acetaminophen 10/325 mg Tablet PO PRN ×2 (03:05→20:23)
[2018-11-07] MEDS: Vancomycin HCl 1.25 GM in Sodium Chloride 0.9% 250 ML 250 ML IVPB SCH (06:46)
[2018-11-07] MEDS: D5 1/2 NS w/20 mEq KCL 1,000 ML IV SCH (07:30)
[2018-11-07] MEDS: Docusate 100 MG CAP PO SCH ×2 (09:35→22:21)
[2018-11-07] MEDS: Multivit, Therapeutic 1 TAB PO SCH (09:35)
[2018-11-07] MEDS: Enoxaparin Sodium 40 MG/0.4 ML SYRINGE SC SCH (09:35)
[2018-11-07] MEDS: Famotidine 20 MG TAB PO SCH ×2 (09:35→22:21)
[2018-11-07] MEDS: Carvedilol 3.125 MG TAB PO SCH ×2 (09:36→20:38)
[2018-11-07] MEDS: Aspirin 81 mg Enteric Coated Tablet PO SCH (09:36)
[2018-11-07] MEDS: Saccharomyces boulardii 250 MG CAP PO SCH (09:36)
[2018-11-07] MEDS: Polyethylene Glycol 3350 17 GM Packet PO SCH (09:36)
[2018-11-07] MEDS: Senokot S 8.6-50 MG TAB PO SCH ×2 (09:36→22:21)
[2018-11-07] MEDS ORDERED: PROPOFOL 200 MG/20 ML VIAL ONE (12:07)
--- NOTE | 2018-11-07 12:11 | PDOC.PN ---
- Subjective Encounter Start Date: 11/07/18 Encounter Start Time: 11:15 Patient seen and examined for med mngt. No fever/chills. No new complaints. No overnight events - Objective MAR Reviewed: Yes Vital Signs & Weight: Vital Signs (12 hours) Temp Pulse Resp BP Pulse Ox 11/07/18 10:42 80 14 11/07/18 07:08 98.1 F 78 19 101/57 L 92 L 11/07/18 06:49 70 14 11/07/18 04:39 92 L 11/07/18 03:54 97.5 F L 71 18 85/52 L 95 11/07/18 03:51 92 L Weight Admit Weight 165 lb Weight 165 lb I&O: 11/06/18 11/07/18 11/08/18 06:59 06:59 06:59 Intake Total 1133 1440 Output Total 800 1160 Balance 333 280 Result Diagrams: 11/06/18 05:18 11/06/18 05:18 EKG Reviewed by me: Yes (Tele SR) Phys Exam - Physical Examination Constitutional: NAD Respiratory: no wheezing, no rhonchi Cardiovascular: RRR, no rub Gastrointestinal: soft, non-tender, positive bowel sounds Musculoskeletal: no edema Neurological: moves all 4 limbs Dx/Plan - Plan DVT proph w/SCDs IMPRESSION: Afib with RVR - in SR - Off Cardizem drip Vegatation vs thrombus on Tricuspid valve Atypical CP/SOB due to Atelectasis Tobacco dependence - counselled Hyponatremia Acute blood loss Anemia due to retroperitoneal hemorrhage- s/p IV iron infusion PLAN: Blood cultures negative DC Vancomycin Cont Coreg/Aspirin Cont IS FAISAL today AM labs Review of Systems - Review of Systems Respiratory: negative: Cough, Dry, Shortness of Breath, Hemoptysis, SOB with Excertion, Pleuritic Pain, Sputum, Wheezing Cardiovascular: negative: chest pain, palpitations, orthopnea, paroxysmal nocturnal dyspnea, edema, light headedness, other - Medications/Allergies Allergies/Adverse Reactions: Allergies Allergy/AdvReac Type Severity Reaction Status Date / Time No Known Allergies Allergy Verified 10/31/18 23:52 Medications: Current Medications Acetaminophen (Tylenol) 650 mg PO Q4H PRN PRN Reason: Headache/Fever/Mild Pain (1-3) Last Admin: 11/05/18 20:51 Dose: 650 mg Acetaminophen (Tylenol) 650 mg [place] Q4H PRN PRN Reason: Headache/Fever/Mild Pain (1-3) Hydrocodone Bitart/Acetaminophen ([place] 10/325) 1 tab PO Q4H PRN PRN Reason: Mild-Moderate Pain (1-5) Last Admin: 11/06/18 05:25 Dose: 1 tab Hydrocodone Bitart/Acetaminophen ([place] 10/325) 2 tab PO Q4H PRN PRN Reason: Severe Pain (7-10) Last Admin: 11/07/18 03:05 Dose: 2 tab Albuterol/Ipratropium (Duoneb) 3 ml EZPAP [id number] [facility] Last Admin: 11/07/18 10:42 Dose: 3 ml Aspirin (Ecotrin) 81 mg PO DAILY [facility] Last Admin: 11/07/18 09:36 Dose: 81 mg Bisacodyl (Dulcolax) 10 mg [place] Q8H PRN PRN Reason: Constipation Carvedilol (Coreg) 3.125 mg PO BID-[facility] Last Admin: 11/07/18 09:36 Dose: 3.125 mg Dextrose/Water (Dextrose 50%) 25 gm SLOW IVP PRN PRN PRN Reason: Hypoglycemia Docusate Sodium (Colace) 100 mg PO BID [facility] Last Admin: 11/07/18 09:35 Dose: 100 mg Enoxaparin Sodium (Lovenox) 40 mg SC 0900 [facility] Last Admin: 11/07/18 09:35 Dose: 40 mg Famotidine (Pepcid) 20 mg PO Q12HR [facility] Last Admin: 11/07/18 09:35 Dose: 20 mg Glucagon (Glucagon) 1 mg IM PRN PRN PRN Reason: Hypoglycemia Hydralazine HCl (Apresoline) 10 mg SLOW IVP Q4H PRN PRN Reason: SBP > 170 or DBP > 100 Dextrose/Water (D5w) 1,000 mls @ 0 mls/hr IV .Q0M PRN PRN Reason: Hypoglycemia Piperacillin Sod/Tazobactam (Sod 3.375 gm/ Sodium Chloride) 100 mls @ 200 mls/ hr IVPB 0300,0900,1500,2100 [facility] Last Admin: 11/07/18 09:34 Dose: 100 mls Potassium Chloride/Dextrose/Sod Cl (D5 1/2 Ns W/20 Meq Kcl) 1,000 mls @ 50 mls/ hr IV .Q20H [facility] Last Admin: 11/06/18 08:12 Dose: 1,000 mls Vancomycin HCl 1.25 gm/ Sodium (Chloride) 250 mls @ 166.667 mls/hr IVPB 0600, 1800 [facility] Last Admin: 11/07/18 06:46 Dose: 250 mls Miscellaneous Medication (Pharmacy To Dose) 1 each IVPB PRN PRN PRN Reason: Pharmacy to dose Morphine Sulfate (Morphine) 2 mg SLOW IVP Q2H PRN PRN Reason: Moderate Pain (4-6) Last Admin: 11/03/18 15:14 Dose: 2 mg Morphine Sulfate (Morphine) 4 mg SLOW IVP Q2H PRN PRN Reason: Severe Pain (7-10) Last Admin: 11/01/18 09:22 Dose: 4 mg Multivitamins (Theragran) 1 tab PO DAILY [facility] Last Admin: 11/07/18 09:35 Dose: 1 tab Nicotine (Nicoderm Patch) 14 mg TD Q24H PRN PRN Reason: Smoking craving Last Admin: 11/02/18 12:31 Dose: 14 mg Nitroglycerin (Nitrostat) 0.4 mg PO Q5MIN PRN PRN Reason: Chest Pain Ondansetron HCl (Zofran) 4 mg IVP Q6H PRN PRN Reason: Nausea/Vomiting Last Admin: 11/03/18 11:17 Dose: 4 mg Polyethylene Glycol (Miralax) 17 gm PO DAILY [facility] Last Admin: 11/07/18 09:36 Dose: Not Given Promethazine HCl (Phenergan) 12.5 mg IM Q4H PRN PRN Reason: Nausea/Vomiting Saccharomyces Boulardii (Florastor) 250 mg PO DAILY [facility] Last Admin: 11/07/18 09:36 Dose: 250 mg Senna/Docusate Sodium (Senokot S) 1 tab PO BID [facility] Last Admin: 11/07/18 09:36 Dose: 1 tab Sodium Chloride (Flush - Normal Saline) 10 ml IVF PRN PRN PRN Reason: Saline Flush Last Admin: 11/03/18 08:40 Dose: 10 ml Sodium Chloride (Flush - Normal Saline) 10 ml IVF PRN PRN PRN Reason: Saline Flush
--- NOTE | 2018-11-07 13:00 | PRG ---
DATE OF SERVICE: 11/07/2018 SUBJECTIVE: The patient says he feels better, still pretty weak. He had a bowel movement. Nausea is better. He is scheduled for further evaluation of some vegetations seen on his heart. Apparently, he is going to have some type of procedure today. OBJECTIVE: GENERAL: On exam, he looks better. VITAL SIGNS: His temperature is 98, pulse 78, blood pressure 101/57. ABDOMEN: His abdomen is less distended. Incision is healing well. ASSESSMENT: Stable. PLAN: Per Cardiology. Job ID: [id number]
[2018-11-07] MEDS ORDERED: PROPOFOL 20 ML ONE (16:54)
[2018-11-08] MEDS: Nicotine 14 MG PATCH TD PRN (00:48)
[2018-11-08] MEDS: D5 1/2 NS w/20 mEq KCL 1,000 ML IV SCH (00:49)
[2018-11-08] MEDS: HYDROcodone/Acetaminophen 10/325 mg Tablet PO PRN ×2 (03:56→09:11)
[2018-11-08] MEDS: Piperacillin/Tazobactam 3.375 GM in Sodium Chloride 0.9% 100 ML IVPB SCH ×2 (03:56→09:12)
[2018-11-08 06:51] LABS: #Basophils 0.1 thou/uL (0.0-0.2); #Eosinphils 0.8 thou/uL (0.0-0.7); #Lymphocytes 1.6 thou/uL (1.20-3.40); #Monocytes 1.2 thou/uL (0.11-0.59); #Neutrophils 5.6 thou/uL (1.40-6.50); %Basophils 0.6 % (0.0-1.0); %Eosinophils 8.3 % (0.0-10.0); %Lymphocytes 17.6 % (21.0-51.0); %Monocytes 12.5 % (0.0-10.0); Hemoglobin 8.2 g/dL (14.0-18.0); Mean Corpuscular HGB CONC 32.7 g/dL (32.0-36.0); Mean Corpuscular Hemoglobin 30.5 pg (27.0-31.0); Mean Corpuscular Volume 93.1 fL (78.0-98.0); Mean Platelet Volume 6.7 fL (7.4-10.4); Platelet Count 376 thou/uL (130-400); RBC Distribution Width 13.1 % (11.5-14.5); White Blood Cell (WBC) Count 9.2 thou/uL (4.8-10.8)
[2018-11-08 07:17] LABS: ALT (SGPT) 40 U/L (8-55); AST (SGOT) 32 U/L (5-34); Albumin 3.1 g/dL (3.5-5.0); Alkaline Phosphatase 56 U/L (40-150); Anion Gap 10 mmol/L (10-20); BUN (Urea Nitrogen) 15 mg/dL (8.4-25.7); Bilirubin, Total 0.8 mg/dL (0.2-1.2); Calc. Creatinine Clearance 96 mL/min (70-130); Calcium 8.5 mg/dL (7.8-10.44); Carbon Dioxide 28 mmol/L (22-29); Chloride 104 mmol/L (98-107); Estimated GFR-MDRD 87; Globulin 2.8 g/dL (2.4-3.5); Glucose 102 mg/dL (70-105); Potassium 4.1 mmol/L (3.5-5.1); Protein, Total 5.9 g/dL (6.0-8.3); Sodium 138 mmol/L (136-145)
[2018-11-08] MEDS: Aspirin 81 mg Enteric Coated Tablet PO SCH (09:04)
[2018-11-08] MEDS: Famotidine 20 MG TAB PO SCH (09:04)
[2018-11-08] MEDS: Docusate 100 MG CAP PO SCH (09:04)
[2018-11-08] MEDS: Carvedilol 3.125 MG TAB PO SCH (09:04)
[2018-11-08] MEDS: Enoxaparin Sodium 40 MG/0.4 ML SYRINGE SC SCH (09:04)
[2018-11-08] MEDS: Saccharomyces boulardii 250 MG CAP PO SCH (09:04)
[2018-11-08] MEDS: Polyethylene Glycol 3350 17 GM Packet PO SCH (09:05)
[2018-11-08] MEDS: Senokot S 8.6-50 MG TAB PO SCH (09:11)
[2018-11-08] MEDS: Multivit, Therapeutic 1 TAB PO SCH (09:11)
--- NOTE | 2018-11-08 09:18 | ECHO ---
CARDIOLOGY PROCEDURE NOTE: DATE OF SERVICE: 11/07/18 PREPROCEDURE DIAGNOSIS: Mass in right atrium. POSTPROCEDURE DIAGNOSIS: Mass in right atrium. PROCEDURE PERFORMED: Transesophageal echocardiogram. SUMMARY: The anesthesia department provided sedation for the patient. Please see their notes for details. Afte r adequate sedation was achieved, a transesophageal probe was inserted into the mouth and into the es ophagus, and multiplanar views were then obtained. FINDINGS: Left ventricle normal size with normal wall thickness. Systolic function normal. Estimated ejection f raction of 50-55% with no regional wall motion abnormalities. Left atrium mildly dilated. Left atrial appendage is a small appendage with normal velocities. No mass or thrombus. Right atrium normal size. There is a flailing mass coming from the superior vena cava, likely thrombu s attached to the tip of the catheter versus a very prominent eustachian valve. I favor a small salvador ar thrombus flailing from the tip of the catheter. Right ventricle normal size. Normal systolic function. Aortic root normal size. Aortic valve has three cusps, no stenosis or regurgitation. No vegetations. Mitral valve structurally normal. Mild MR. No stenosis. No vegetations. Pulmonary valve structurally normal. No stenosis or regurgitation. No vegetations. Tricuspid valve structurally normal. Mild TR. No stenosis. No vegetations. CONCLUSIONS: 1. Normal systolic function. Ejection fraction 50-55%. 2. Mild left atrial enlargement. 3. Mild TR. 4. Flailing mass on right atrium coming from superior vena cava, likely a small flailing thrombus at tached to the tip of the catheter. 5. No vegetations on any of the valvular structures.
--- NOTE | 2018-11-08 10:02 | PRG ---
DATE OF SERVICE: 11/08/2018 SUBJECTIVE: The patient says he feels a lot better. He is eating [employer] solid food. No nausea or vomiting. Bowels are working. Pain is down. OBJECTIVE: VITAL SIGNS: Temperature is 97.9, pulse 73, blood pressure 103/63. ABDOMEN: Soft, nondistended. The incisions are healing well without evidence of infection. His white count is 9.2, H and H 8 and 25, platelet count of 376. Electrolytes are fine. Apparently, he had a transesophageal echo done yesterday. There is no report yet, so we were not sure what it showed. The echocardiogram had suggested a vegetation versus clot on the tricuspid valve. ASSESSMENT: Doing well. PLAN: Awaiting Cardiology report. Treat therapy per Cardiology. Job ID: [id number]
--- NOTE | 2018-11-08 14:05 | PDOC.PN ---
- Subjective Encounter Start Date: 11/08/18 Encounter Start Time: 10:30 Patient seen and examined for med mngt. No SOB/CP. No other complaints. No overnight events - Objective MAR Reviewed: Yes Vital Signs & Weight: Vital Signs (12 hours) Temp Pulse Resp BP Pulse Ox 11/08/18 12:00 97.5 F L 70 18 119/69 99 11/08/18 10:12 84 16 94 L 11/08/18 07:42 97.9 F 73 20 103/63 97 11/08/18 07:40 94 L 11/08/18 06:57 98 11/08/18 06:54 68 16 98 11/08/18 03:56 98.4 F 79 20 109/71 98 Weight Admit Weight 165 lb Weight 165 lb I&O: 11/07/18 11/08/18 11/09/18 06:59 06:59 06:59 Intake Total 1440 Output Total 1160 Balance 280 Result Diagrams: 11/08/18 06:23 11/08/18 06:23 EKG Reviewed by me: Yes (Tele SR) Phys Exam - Physical Examination Constitutional: NAD Respiratory: no wheezing, no rhonchi Cardiovascular: RRR, no rub Gastrointestinal: soft, positive bowel sounds Musculoskeletal: no edema Neurological: moves all 4 limbs Dx/Plan - Plan DVT proph w/lovenox, DVT proph w/SCDs IMPRESSION: Afib with RVR - in SR - Off Cardizem drip Thrombus on Central line Atypical CP/SOB due to Atelectasis Tobacco dependence - counselled Hyponatremia Acute blood loss Anemia due to retroperitoneal hemorrhage- s/p IV iron infusion PLAN: DC Central line Cont Coreg/Aspirin s/p FAISAL DC IV fluids Case d/w Dr Marie - He recommended to dc central line. Not a candidate for anticoag per Dr Frank Hoffman updated. Will follow Review of Systems - Review of Systems Respiratory: negative: Cough, Dry, Shortness of Breath, Hemoptysis, SOB with Excertion, Pleuritic Pain, Sputum, Wheezing Cardiovascular: negative: chest pain, palpitations, orthopnea, paroxysmal nocturnal dyspnea, edema, light headedness, other - Medications/Allergies Allergies/Adverse Reactions: Allergies Allergy/AdvReac Type Severity Reaction Status Date / Time No Known Allergies Allergy Verified 10/31/18 23:52 Medications: Current Medications Acetaminophen (Tylenol) 650 mg PO Q4H PRN PRN Reason: Headache/Fever/Mild Pain (1-3) Last Admin: 11/05/18 20:51 Dose: 650 mg Acetaminophen (Tylenol) 650 mg DE Q4H PRN PRN Reason: Headache/Fever/Mild Pain (1-3) Hydrocodone Bitart/Acetaminophen (Anderson 10/325) 1 tab PO Q4H PRN PRN Reason: Mild-Moderate Pain (1-5) Last Admin: 11/06/18 05:25 Dose: 1 tab Hydrocodone Bitart/Acetaminophen (Anderson 10/325) 2 tab PO Q4H PRN PRN Reason: Severe Pain (7-10) Last Admin: 11/08/18 09:11 Dose: 2 tab Albuterol/Ipratropium (Duoneb) 3 ml EZPAP [id number] [facility] Last Admin: 11/08/18 10:12 Dose: 3 ml Aspirin (Ecotrin) 81 mg PO DAILY [facility] Last Admin: 11/08/18 09:04 Dose: 81 mg Bisacodyl (Dulcolax) 10 mg DE Q8H PRN PRN Reason: Constipation Carvedilol (Coreg) 3.125 mg PO BID-[facility] Last Admin: 11/08/18 09:04 Dose: 3.125 mg Dextrose/Water (Dextrose 50%) 25 gm SLOW IVP PRN PRN PRN Reason: Hypoglycemia Docusate Sodium (Colace) 100 mg PO BID [facility] Last Admin: 11/08/18 09:04 Dose: 100 mg Enoxaparin Sodium (Lovenox) 40 mg SC 0900 [facility] Last Admin: 11/08/18 09:04 Dose: 40 mg Famotidine (Pepcid) 20 mg PO Q12HR [facility] Last Admin: 11/08/18 09:04 Dose: 20 mg Glucagon (Glucagon) 1 mg IM PRN PRN PRN Reason: Hypoglycemia Hydralazine HCl (Apresoline) 10 mg SLOW IVP Q4H PRN PRN Reason: SBP > 170 or DBP > 100 Dextrose/Water (D5w) 1,000 mls @ 0 mls/hr IV .Q0M PRN PRN Reason: Hypoglycemia Morphine Sulfate (Morphine) 2 mg SLOW IVP Q2H PRN PRN Reason: Moderate Pain (4-6) Last Admin: 11/03/18 15:14 Dose: 2 mg Morphine Sulfate (Morphine) 4 mg SLOW IVP Q2H PRN PRN Reason: Severe Pain (7-10) Last Admin: 11/01/18 09:22 Dose: 4 mg Multivitamins (Theragran) 1 tab PO DAILY [facility] Last Admin: 11/08/18 09:11 Dose: 1 tab Nicotine (Nicoderm Patch) 14 mg TD Q24H PRN PRN Reason: Smoking craving Last Admin: 11/08/18 00:48 Dose: 14 mg Nitroglycerin (Nitrostat) 0.4 mg PO Q5MIN PRN PRN Reason: Chest Pain Ondansetron HCl (Zofran) 4 mg IVP Q6H PRN PRN Reason: Nausea/Vomiting Last Admin: 11/03/18 11:17 Dose: 4 mg Polyethylene Glycol (Miralax) 17 gm PO DAILY [facility] Last Admin: 11/08/18 09:05 Dose: 17 gm Promethazine HCl (Phenergan) 12.5 mg IM Q4H PRN PRN Reason: Nausea/Vomiting Saccharomyces Boulardii (Florastor) 250 mg PO DAILY [facility] Last Admin: 11/08/18 09:04 Dose: 250 mg Senna/Docusate Sodium (Senokot S) 1 tab PO BID [facility] Last Admin: 11/08/18 09:11 Dose: 1 tab Sodium Chloride (Flush - Normal Saline) 10 ml IVF PRN PRN PRN Reason: Saline Flush Last Admin: 11/03/18 08:40 Dose: 10 ml Sodium Chloride (Flush - Normal Saline) 10 ml IVF PRN PRN PRN Reason: Saline Flush
[2018-11-08 14:22] VITALS: BP 114/69; TEMP 97.8
--- NOTE | 2018-11-09 04:40 | DIS ---
DATE OF ADMISSION: 10/31/2018 DATE OF DISCHARGE: 11/08/2018 DISCHARGE DIAGNOSES: 1. Bilateral massive inguinal hernias. 2. Postoperative hemorrhage due to internal epigastric artery bleed. 3. Atrial fibrillation. PROCEDURES DURING ADMISSION: Bilateral inguinal hernia repair, central line placement, ligation of inferior epigastric artery. HOSPITAL COURSE: The patient was admitted. A CT scan showed possible external iliac injury. He was taken to the operating room, where he underwent exploration and was found to be an inferior epigastric artery which was ligated. Postoperatively, he was observed and then he went into atrial fibrillation with a rapid ventricular response. Internal Medicine Cardiology was consulted. He was treated with Cardizem. He converted. They did an echocardiogram that showed possible vegetation on his tricuspid valve. On further review after far initial echo, so that transesophageal echo suggested it was just some clot on the tip of a central line. He is doing fine now. He is tolerating a regular diet. Bowels are functioning well. He is afebrile. He is in normal sinus rhythm. He is discharged home on his usual medications and [place], Colace, as well as Coreg. He will follow up with me in 2 weeks. Job ID: [id number]
== END 2018-11-08 15:16 | disposition home or self-care (01) | DRG 908 ==
LOC: SDC 06:50 → SURG A 19:49 → 2NO 11-03 10:07
PROVIDERS: ADMIT Surgery; ATTEND Surgery
PROC: 0WCJ0ZZ Extirpation of Matter from Pelvic Cavity, Open Approach (ICD-10-PCS; principal; 2018-10-31)
PROC: 0YUA0JZ Supplement Bilateral Inguinal Region with Synthetic Substitute, Open Approach (ICD-10-PCS; 2018-10-31)
PROC: 0YU50JZ Supplement Right Inguinal Region with Synthetic Substitute, Open Approach (ICD-10-PCS; 2018-10-31)
PROC: 0W3J0ZZ Control Bleeding in Pelvic Cavity, Open Approach (ICD-10-PCS; 2018-10-31)
PROC: 05H533Z Insertion of Infusion Device into Right Subclavian Vein, Percutaneous Approach (ICD-10-PCS; 2018-10-31)
DX: I97.620 Postprocedural hemorrhage of a circulatory system organ or structure following other procedure (principal); K40.31 Unilateral inguinal hernia, with obstruction, without gangrene, recurrent; K40.30 Unilateral inguinal hernia, with obstruction, without gangrene, not specified as recurrent; K56.7 Ileus, unspecified; J98.11 Atelectasis; D62 Acute posthemorrhagic anemia; E87.1 Hypo-osmolality and hyponatremia; T82.868A Thrombosis due to vascular prosthetic devices, implants and grafts, initial encounter; R50.82 Postprocedural fever; I48.91 Unspecified atrial fibrillation; J42 Unspecified chronic bronchitis; F17.210 Nicotine dependence, cigarettes, uncomplicated; Y83.8 Other surgical procedures as the cause of abnormal reaction of the patient, or of later complication, without mention of misadventure at the time of the procedure
CPT/HCPCS: 36415; 71045; 71046; 74019; 74177; 80048; 80053; 80069; 80307; 82805; 83550; 83735; 84145; 84443; 84484; 85014; 85018; 85025; 86850; 86900; 86901; 87040; 93005; 93010; 93306; 93312; 94640; 94760; C1781; J0670; J0690; J1100; J1644; J1650; J1756; J1885; J2001; J2250; J2270; J2405; J2543; J2704; J2720; J2916; J3010; J3370; J3490; J7050; J7620; P9045; Q9966; S0028